=== PATIENT | male | born 1995 | race American Indian/Alaskan Native ===

== ENCOUNTER 2018-06-10 08:11 | Observation (INO) | payer SELFPAY ==
[2018-06-10 09:04] LABS: Basophils % (Auto) 0.3 % (0.0-1.8); Eosinophils # (Auto) 0.6 K/mm3 (0.0-0.4); Eosinophils % (Auto) 4.2 % (0.0-4.3); Hematocrit 28.9 % (35.5-45.6); Hemoglobin 9.7 gm/dl (11.8-15.2); Lymphocytes # (Auto) 1.4 K/mm3 (1.2-5.4); Lymphocytes % (Auto) 9.2 % (13.4-35.0); Mean Corpuscular HGB Conc 34 % (32-34); Mean Corpuscular Volume 91 fl (84-94); Monocytes # (Auto) 1.2 K/mm3 (0.0-0.8); Monocytes % (Auto) 8.2 % (0.0-7.3); Platelet Count 354 K/mm3 (140-440); Red Blood Count 3.16 M/mm3 (3.65-5.03); Red Cell Distribution Width 13.3 % (13.2-15.2)
--- NOTE | 2018-06-10 09:07 | Emergency Department Report ---
ED Abdominal Pain HPI - General Chief Complaint: Abdominal Pain Stated Complaint: ABD PAIN/BLOOD IN STOOL Time Seen by Provider: 06/10/18 09:01 Source: patient Mode of arrival: Ambulatory Limitations: No Limitations - History of Present Illness Initial Comments: Patient is a 22-year-old male that presents emergency with complaints of rectal bleeding and epigastric abdominal pain. Patient states the epigastric abdominal pain has resolved. Patient states that the rectal bleeding has been going on for 2 weeks. Patient states that the bleeding is worsening. Patient states when he first started was only a few drops of blood in the toilet. Patient states now it is multiple drops of blood in the toilet causing the water to turn red. Patient denies fever chills. Patient denies constipation. Patient denies lower abdominal pain. Patient denies nausea vomiting. Patient denies headache. Patient denies blurry vision. Patient denies passing out. MD Complaint: abdominal pain -: Sudden Location: epigastric Migration to: no migration Severity: mild Severity scale (0 -10): 2 Quality: aching Consistency: intermittent Improves With: eating Worsens With: nothing Associated Symptoms: hematochezia. denies: nausea, vomiting, diarrhea, fever, chills, constipation, dysuria, hematemesis, melena, hematuria, anorexia, syncope - Related Data Home Medications Medication Instructions Recorded Confirmed Last Taken Docusate Sodium [Doc-Q-Lace] 100 mg PO BID 06/10/18 06/10/18 Unknown OLANzapine [ZyPREXA] 10 mg PO DAILY 06/10/18 06/10/18 Unknown Psyllium Seed (with Sugar) 1 each PO PRN 06/10/18 06/10/18 Unknown [Metamucil] diphenhydrAMINE [Benadryl CAP] 50 mg PO QHS PRN 06/10/18 06/10/18 Unknown Allergies Allergy/AdvReac Type Severity Reaction Status Date / Time No Known Allergies Allergy Unverified 06/10/18 08:12 ED Review of Systems ROS: Stated complaint: ABD PAIN/BLOOD IN STOOL Other details as noted in HPI Constitutional: denies: chills, fever Eyes: denies: eye pain, eye discharge, vision change ENT: denies: ear pain, throat pain Respiratory: denies: cough, shortness of breath, wheezing Cardiovascular: denies: chest pain, palpitations Endocrine: no symptoms reported Gastrointestinal: abdominal pain, hematochezia. denies: nausea, diarrhea Genitourinary: denies: urgency, dysuria Musculoskeletal: denies: back pain, joint swelling, arthralgia Skin: denies: rash, lesions Neurological: denies: headache, weakness, paresthesias Psychiatric: denies: anxiety, depression Hematological/Lymphatic: denies: easy bleeding, easy bruising ED Past Medical Hx - Past Medical History Previous Medical History?: Yes Hx Psychiatric Treatment: Yes (BIPOLAR, SCHIZOPHRENIA) Additional medical history: HEMMORHOIDS - Surgical History Past Surgical History?: No - Family History Family history: no significant - Social History Smoking Status: Current Every Day Smoker Substance Use Type: None - Medications Home Medications: Home Medications Medication Instructions Recorded Confirmed Last Taken Type Docusate Sodium [Doc-Q-Lace] 100 mg PO BID 06/10/18 06/10/18 Unknown History OLANzapine [ZyPREXA] 10 mg PO DAILY 06/10/18 06/10/18 Unknown History Psyllium Seed (with Sugar) 1 each PO PRN 06/10/18 06/10/18 Unknown History [Metamucil] diphenhydrAMINE [Benadryl CAP] 50 mg PO QHS PRN 06/10/18 06/10/18 Unknown History ED Physical Exam - General Limitations: No Limitations General appearance: alert, in no apparent distress - Head Head exam: Present: atraumatic, normocephalic - Eye Eye exam: Present: normal appearance - ENT ENT exam: Present: mucous membranes moist - Neck Neck exam: Present: normal inspection - Respiratory Respiratory exam: Present: normal lung sounds bilaterally. Absent: respiratory distress - Cardiovascular Cardiovascular Exam: Present: regular rate, normal rhythm. Absent: systolic murmur, diastolic murmur, rubs, gallop - GI/Abdominal GI/Abdominal exam: Present: soft, normal bowel sounds. Absent: distended, tenderness, guarding, rebound, rigid - Rectal Rectal exam: Present: deferred - Extremities Exam Extremities exam: Present: normal inspection - Back Exam Back exam: Present: normal inspection - Neurological Exam Neurological exam: Present: alert, oriented X3 - Psychiatric Psychiatric exam: Present: normal affect, normal mood - Skin Skin exam: Present: warm, dry, intact, normal color. Absent: rash ED Course Vital Signs 06/10/18 06/10/18 08:18 09:14 Temperature 98.6 F Pulse Rate 112 H Respiratory 16 15 Rate Blood Pressure 130/63 O2 Sat by Pulse 99 Oximetry - Reevaluation(s) Reevaluation #1: discussed all results with mother and pt. 06/10/18 10:34 GI saw patient. discussed the plan of care with patient. GI to return to discuss plan of care with patient 06/10/18 11:30 Discussed plan of care and admission with patient and family. Both agree with plan of care and admission. Patient admitted to the hospitalist service. 06/10/18 12:17 - Consultations Consultation #1: GI consulted. Gi to see pt. 06/10/18 10:20 GI patient and an Kim will discuss case with attending for possible colonoscopy in the morning. 06/10/18 11:18 Consultation #2: Hospitalist to admit patient. Hospitalists to assume care of patient. Bridging orders placed 06/10/18 12:17 ED Medical Decision Making - Lab Data Result diagrams: 06/10/18 08:50 06/10/18 08:50 - Medical Decision Making Patient is a 22-year-old male that presents emergency room with complaints of GI bleed 2 weeks. Patient found to have anemia. GI consult and wants patient admitted for a morning colonoscopy. . Hospitalist consult for admission. Other labs unremarkable except for anemia - Differential Diagnosis GI bleed. Anemia. Critical Care Time: Yes Critical care attestation.: If time is entered above; I have spent that time in minutes in the direct care of this critically ill patient, excluding procedure time. Critical Care Time: 35 minutes ED Disposition Clinical Impression: Rectal bleed Abdominal pain Qualifiers: Abdominal location: epigastric Qualified Code(s): R10.13 - Epigastric pain Anemia Qualifiers: Anemia type: unspecified type Qualified Code(s): D64.9 - Anemia, unspecified GI bleed Qualifiers: GI bleed type/associated pathology: unspecified gastrointestinal hemorrhage type Qualified Code(s): K92.2 - Gastrointestinal hemorrhage, unspecified Disposition: 09 OP ADMIT IP TO THIS HOSP Is pt being admited?: Yes Does the pt Need Aspirin: No Condition: Critical Time of Disposition: 12:19
[2018-06-10 09:56] LABS: BUN/Creatinine Ratio 13; Blood Urea Nitrogen 8 mg/dL (9-20); Calcium 8.6 mg/dL (8.4-10.2); Hemolysis Index 17
[2018-06-10 10:49] LABS: Alanine Aminotransferase 8 units/L (7-56); Albumin 3.3 g/dL (3.9-5)
[2018-06-10 10:53] LABS: Bilirubin,Direct < 0.2 mg/dL (0-0.2)
--- NOTE | 2018-06-10 11:18 | Gastroenterology Consultation ---
<MALIK RODRIGUEZ - Last Filed: 06/10/18 12:43> History of Present Illness - Reason for Consult Consult date: 06/10/18 GI bleed/rectal bleeding Requesting physician: EDGARDO HAGER III - History of Present Illness Patient is a 22 y/o male with PMH of bipolar disorder, schizophrenia, and hemorrhoids who presented to ED with c/o rectal bleeding to which GI has been consulted. This morning patient was sitting up in bedside chair with family (mother) at bedside. He reports rectal bleeding with bright red blood after BMs for the past few months with bleeding increasing in amount x 3-4 days. Denies fever, wt loss, CP, SOB, abdominal pain, N/V, hematemesis, melena, or diarrhea. Admits to a hx of constipation but is now taking a daily stool softener with constipation resolved with having BMs x 2/day. Patient was recently incarcerated but denies any rectal trauma or rectal pain. States he was told during a prior hospital visit in [place] that he had blood in his stool but has never underwent a colonoscopy. No NSAIDs or blood thinning medications. No hx of Fhx of IBD or colon CA. Past History Past Medical History: other (as per HPI) Past Surgical History: No surgical history Social history: smoking Medications and Allergies Allergies Allergy/AdvReac Type Severity Reaction Status Date / Time No Known Allergies Allergy Unverified 06/10/18 08:12 Home Medications Medication Instructions Recorded Confirmed Last Taken Type Docusate Sodium [Doc-Q-Lace] 100 mg PO BID 06/10/18 06/10/18 Unknown History OLANzapine [ZyPREXA] 10 mg PO DAILY 06/10/18 06/10/18 Unknown History Psyllium Seed (with Sugar) 1 each PO PRN 06/10/18 06/10/18 Unknown History [Metamucil] diphenhydrAMINE [Benadryl CAP] 50 mg PO QHS PRN 06/10/18 06/10/18 Unknown History Active Meds: medications reviewed/updated as required Review of Systems - Review of Systems All systems: negative Gastrointestinal: hematochezia Exam - Constitutional Vital Signs: Temp Pulse Resp BP Pulse Ox 98.6 F 112 H 15 130/63 99 06/10/18 08:18 06/10/18 08:18 06/10/18 09:14 06/10/18 08:18 06/10/18 08:18 General appearance: no acute distress, other (thin appearing) - EENT Eyes: PERRL, EOM intact ENT: hearing intact - Respiratory Respiratory: bilateral: CTA - Cardiovascular Rhythm: other (tachycardia) - Gastrointestinal General gastrointestinal: Present: soft, non-tender, non-distended, normal bowel sounds - Neurologic Neurological: alert and oriented x3 - Labs CBC & Chem 7: 06/10/18 08:50 06/10/18 08:50 Lab Results: Laboratory Results - last 24 hr 06/10/18 06/10/18 06/10/18 08:50 08:50 08:50 WBC 15.1 H RBC 3.16 L Hgb 9.7 L Hct 28.9 L MCV 91 MCH 31 MCHC 34 RDW 13.3 Plt Count 354 Lymph % (Auto) 9.2 L Hill % (Auto) 8.2 H Eos % (Auto) 4.2 Baso % (Auto) 0.3 Lymph # 1.4 Hill # 1.2 H Eos # 0.6 H Baso # 0.0 Seg Neutrophils % 78.1 H Seg Neutrophils # 11.8 H Sodium 140 Potassium 3.8 Chloride 102.6 Carbon Dioxide 29 Anion Gap 12 BUN 8 L Creatinine 0.6 L Estimated GFR > 60 BUN/Creatinine Ratio 13 Glucose 89 Calcium 8.6 Total Bilirubin 0.20 Direct Bilirubin < 0.2 Indirect Bilirubin 0.0 AST 14 ALT 8 Alkaline Phosphatase 55 Total Protein 6.6 Albumin 3.3 L Albumin/Globulin Ratio 1.0 Lipase 141 H Assessment and Plan 1.GI bleed 2.hematochezia 3.H/o hemorrhoids 4.H/o constipation- now resolved with daily stool softener -BUN 9 -LFTs WNL -H/H 9.7/28.9 -continue to monitor H/H and transfuse as needed -hold blood thinning medications -patient reports rectal bleeding with bright red blood for the past few (3-6) months after BMs that has worsened x 3-4 days. No abd pain, hematemesis, or melena. -currently HD stable -etiology-possibly anorectal in origin vs other -will schedule for a colonoscopy tomorrow for further evaluation -okay for clears today then NPO after MN -continue supportive care -will follow <PALLAVI GUO - Last Filed: 06/10/18 20:30> Medications and Allergies Active Meds: Active Medications Polyethylene Glycol/Electrolytes (Golytely) 4,000 ml PO ONCE JUAN Stop: 06/11/18 00:00 Last Admin: 06/10/18 15:31 Dose: 4,000 ml Documented by: Exam - Constitutional Vital Signs: Temp Pulse Resp BP Pulse Ox 98.5 F 92 H 15 119/68 100 06/10/18 17:22 06/10/18 17:22 06/10/18 17:22 06/10/18 17:22 06/10/18 17:22 - Labs CBC & Chem 7: 06/10/18 08:50 06/10/18 08:50 Lab Results: Laboratory Results - last 24 hr 06/10/18 06/10/18 06/10/18 08:50 08:50 08:50 WBC 15.1 H RBC 3.16 L Hgb 9.7 L Hct 28.9 L MCV 91 MCH 31 MCHC 34 RDW 13.3 Plt Count 354 Lymph % (Auto) 9.2 L Hill % (Auto) 8.2 H Eos % (Auto) 4.2 Baso % (Auto) 0.3 Lymph # 1.4 Hill # 1.2 H Eos # 0.6 H Baso # 0.0 Seg Neutrophils % 78.1 H Seg Neutrophils # 11.8 H Sodium 140 Potassium 3.8 Chloride 102.6 Carbon Dioxide 29 Anion Gap 12 BUN 8 L Creatinine 0.6 L Estimated GFR > 60 BUN/Creatinine Ratio 13 Glucose 89 Calcium 8.6 Total Bilirubin 0.20 Direct Bilirubin < 0.2 Indirect Bilirubin 0.0 AST 14 ALT 8 Alkaline Phosphatase 55 Total Protein 6.6 Albumin 3.3 L Albumin/Globulin Ratio 1.0 Lipase 141 H Blood Type Antibody Screen 06/10/18 12:26 WBC RBC Hgb Hct MCV MCH MCHC RDW Plt Count Lymph % (Auto) Hill % (Auto) Eos % (Auto) Baso % (Auto) Lymph # Hill # Eos # Baso # Seg Neutrophils % Seg Neutrophils # Sodium Potassium Chloride Carbon Dioxide Anion Gap BUN Creatinine Estimated GFR BUN/Creatinine Ratio Glucose Calcium Total Bilirubin Direct Bilirubin Indirect Bilirubin AST ALT Alkaline Phosphatase Total Protein Albumin Albumin/Globulin Ratio Lipase Blood Type A POSITIVE Antibody Screen Negative Assessment and Plan Patient seen and examined. I have reviewed the advanced practitioner's evaluation, assessment, and plan, and agree with them. I note the following additions: Patient with benign exam (soft abd, +BS), but given significant anemia and continued rectal bleeding requires colonoscopy for further eval as simple hemorrhoids would be an unusual source for significant anemia. Will proceed with colonoscopy tomorrow
[2018-06-10] MEDS ORDERED: GOLYTELY PO SCH (13:00)
[2018-06-10] MEDS ORDERED: REGLAN IV PRN (21:47)
[2018-06-10] MEDS ORDERED: TYLENOL PO PRN (21:47)
[2018-06-10] MEDS ORDERED: ZOFRAN IV PRN (21:47)
[2018-06-10] MEDS ORDERED: MORPHINE IV PRN (21:47)
[2018-06-10] MEDS ORDERED: SODIUM CHLORIDE FLUSH SYRINGE 10 ML IV PRN (21:47)
[2018-06-10] MEDS ORDERED: DILAUDID IV PRN (21:47)
[2018-06-10] MEDS ORDERED: NACL 0.9% 1000 ML 1,000 ML IV SCH (22:00)
[2018-06-10 22:08] LABS: Hematocrit 26.3 % (35.5-45.6); Hemoglobin 9.2 gm/dl (11.8-15.2)
[2018-06-10] MEDS: PEPCID IV SCH (22:38)
[2018-06-10] MEDS: SODIUM CHLORIDE FLUSH SYRINGE 10 ML IV SCH (22:38)
[2018-06-11 07:13] LABS: Basophils % (Auto) 0.2 % (0.0-1.8); Eosinophils # (Auto) 0.5 K/mm3 (0.0-0.4); Eosinophils % (Auto) 4.6 % (0.0-4.3); Hematocrit 27.9 % (35.5-45.6); Hemoglobin 9.4 gm/dl (11.8-15.2); Lymphocytes % (Auto) 9.3 % (13.4-35.0); Mean Corpuscular HGB Conc 34 % (32-34); Mean Corpuscular Volume 92 fl (84-94); Monocytes # (Auto) 0.9 K/mm3 (0.0-0.8); Monocytes % (Auto) 7.9 % (0.0-7.3); Platelet Count 357 K/mm3 (140-440); Red Blood Count 3.05 M/mm3 (3.65-5.03); Red Cell Distribution Width 13.4 % (13.2-15.2)
--- NOTE | 2018-06-11 07:23 | Event Note ---
Date: 06/10/18 See H/p in reports Lower GI Bleed possible Heemorrhoid bleeding
[2018-06-11 07:36] LABS: BUN/Creatinine Ratio 7; Blood Urea Nitrogen 4 mg/dL (9-20); Calcium 8.4 mg/dL (8.4-10.2); Hemolysis Index 4
--- NOTE | 2018-06-11 07:40 | History and Physical Report ---
CHIEF COMPLAINT: 1. Abdominal pain. 2. Blood in the stools for 2 weeks. HISTORY OF PRESENT ILLNESS: A 22-year-old -[place] male with no significant past medical history except for bipolar disorder and schizophrenia, comes in for lower rectal bleeding for 2 weeks off and on. Has been worsening and hence he came to the Emergency Room. The patient noticed a few drops of blood in the toilet. Of late, he has been having 5-10 mL of blood in the stools. The patient also has been having formed stools. Some rectal pain present. No history of homosexuality. PAST MEDICAL HISTORY: Significant for bipolar disorder with schizophrenia. PAST SURGICAL HISTORY: None. FAMILY HISTORY: No significant family history. SOCIAL HISTORY: Smokes over half a pack a day. No drugs. REVIEW OF SYSTEMS: Significant for blood in the stool and cramping abdominal pain. Otherwise, review of systems is negative. PHYSICAL EXAMINATION: GENERAL: Young male, cooperative during examination. VITAL SIGNS: Blood pressure is 124/83, temperature is 98.3, pulse is 95, respirations are 16. HEENT: Unremarkable. Pupils equal and reactive. NECK: Supple, no lymphadenopathy, no thyromegaly. LUNGS: Clear to auscultation and percussion. Good air entry. CARDIOVASCULAR: S1, S2 heard. No gallop, no murmur, no rub. Apical impulse in left fifth intercostal space and midclavicular line. ABDOMEN: Soft and benign. No hepatosplenomegaly. No guarding, no rigidity. Hernial orifices are normal. Occult blood is positive. CENTRAL NERVOUS SYSTEM: Alert and oriented x 4, nonfocal exam. SKIN: Normal. LABORATORY DATA: White count is 15,100, H is 9.7 and hematocrit is 28.9, platelet count is 354,000. Electrolytes are normal. Lipase is 141. Albumin is 3.3. CT abdomen not done. ASSESSMENT AND PLAN: 1. Lower gastrointestinal bleed, possible hemorrhoidal bleeding from the history. We will get gastrointestinal involved. May get a colonoscopy. IV Protonix initiated. 2. Bipolar disorder. The patient is on Zyprexa. We will hold for 1 day till the procedure is over. 3. Deep venous thrombosis prophylaxis, sequential compression devices only. JOB# [id number] VSM/NTS
[2018-06-11] MEDS: SODIUM CHLORIDE FLUSH SYRINGE 10 ML IV SCH (09:21)
[2018-06-11] MEDS: PEPCID IV SCH (09:21)
[2018-06-11 10:17] LABS: Hematocrit 28.6 % (35.5-45.6); Hemoglobin 9.5 gm/dl (11.8-15.2)
[2018-06-11] MEDS ORDERED: NACL 0.9% 1000 ML 1,000 ML IV SCH (11:00)
[2018-06-11] MEDS ORDERED: WATER FOR IRRIG STERILE IR ONE (11:34)
--- NOTE | 2018-06-11 11:36 | Anesthesia Day of Surgery ---
Anesthesia Day of Surgery - Day of Surgery Patient Examined: Yes Patient H&P Reviewed: Yes Patient is NPO: Yes Beta Blockers: No
--- NOTE | 2018-06-11 11:37 | Anesthesia Consultation ---
Anesthesia Consult and Med Hx - Airway Anesthetic Teeth Evaluation: Good ROM Head & Neck: Adequate Mental/Hyoid Distance: Adequate Mallampati Class: Class III Intubation Access Assessment: Good - Pulmonary Exam CTA: Yes - Cardiac Exam Cardiac Exam: No Murmur - Pre-Operative Health Status ASA Pre-Surgery Classification: ASA2 Proposed Anesthetic Plan: MAC - Pulmonary Hx Smoking: Yes Hx Asthma: No Hx Respiratory Symptoms: No SOB: No COPD: No Home Oxygen Therapy: No Hx Pneumonia: No Hx Sleep Apnea: No - Cardiovascular System Hx Hypertension: No Hx Coronary Artery Disease: No Hx Heart Attack/AMI: No Hx Angina: No Hx Percutaneous Transluminal Coronary Angioplasty (PTCA): No Hx Cardia Arrhythmia: No Hx Pacemaker: No Hx Internal Defibrillator: No Hx Valvular Heart Disease: No Hx Heart Murmur: No Hx Peripheral Vascular Disease: No - Central Nervous System Hx Neuromuscular Disorder: No Hx Seizures: No CVA: No Hx Back Pain: No Hx Psychiatric Problems: Yes - Gastrointestinal Hx Ulcer: No Hx Gastroesophageal Reflux Disease: No - Endocrine Hx Renal Disease: No Hx End Stage Renal Disease: No Hx Cirrhosis: No Hx Liver Disease: No Hx Insulin Dependent Diabetes: No Hx Non-Insulin Dependent Diabetes: No Hx Thyroid Disease: No Hx Hypothyroidism: No Hx Hyperthyroidism: No - Hematic Hx Anemia: No Hx Sickle Cell Disease: No - Other Systems Hx Alcohol Use: No Hx Substance Use: No Hx Cancer: No Hx Obesity: No
[2018-06-11] MEDS ORDERED: DIPRIVAN 10 MG/ML IV ONE (11:42)
[2018-06-11] MEDS ORDERED: VERSED ONE (11:42)
[2018-06-11] MEDS ORDERED: XYLOCAINE 2% INFILTRATI ONE (11:46)
--- NOTE | 2018-06-11 12:13 | Operative Report ---
Operative Report Operative Report: DATE OF SERVICE: 06/11/18 SURGEON: Ezio Helm MD COLONOSCOPY with biopsy REPORT PREOPERATIVE AND POSTOPERATIVE DIAGNOSIS: rectal bleeding, anemia DESCRIPTION OF PROCEDURE: The colonoscope was passed to the terminal ileum as identified by the ileal tissue. Scope was carefully withdrawn. Retroflexion was performed in the rectum. At the end of procedure, the scope was cleaned using normal technique. Vital signs monitored continuously throughout. SEDATION: Provided by [facility]est[facility]iology [facility]. Quality of the prep was limited to poor COMPLICATIONS: None. ESTIMATED BLOOD LOSS: minimal FINDINGS: * Normal rectal exam * Terminal ileum was normal * There was thick liquid stool throughout the entire colon, limiting views * There was moderate to severe colitis throughout the entire colon, worst in the rectal to transverse colon with moderate to severe erythema and edema and friability with spots of blood scattered throughout. The ascending and cecum were only mild colitis with mild erythema and no friability. Biopsies were taken from the right colon consisting of cecum and ascending colon and from the left colon consisting of distal transverse descending sigmoid and rectum. RECOMMENDATIONS: * Etiology of the colitis is not clear, is not classic appearing for inflammatory bowel disease differential diagnosis includes infectious etiologies, inflammatory bowel disease, unlikely to be ischemia given the distribution. Recommend follow-up pathology results * From GI perspective as long as patient will be able to come for close outpatient follow-up in 1 week he can be discharged given the very stable hemoglobin
[2018-06-11 13:27] VITALS: BP 122/77
--- NOTE | 2018-06-11 13:41 | Discharge Summary ---
Providers - Providers Date of Admission: 06/10/18 13:26 Date of discharge: 06/11/18 Attending physician: CHRIS SÁNCHEZ 06/10/18 21:47 Consult to Physician [CONS] Routine Comment: Consulting Provider: JEANNETTE MOORE Physician Instructions: Reason For Exam: GI Bleed [facility] Condition: Fair Hospital course: Patient is 22 yo with schizophrenia, bipolar disorder. He presented with abdominal pain and bloody stools. He was seen and evaluated in ED and admitted. GI Physician was consulted. ALEX Rosen did colonoscopy reveling extensive colitis. Biopsies were taken. Patient was then dscharged home to follow with GI as outpatient. Disposition: TO HOME OR SELFCARE - Discharge Diagnoses (1) Acute colitis Status: Acute (2) Abdominal pain Status: Acute Qualifiers: Abdominal location: epigastric Qualified Code(s): R10.13 - Epigastric pain (3) GI bleed Status: Acute Qualifiers: GI bleed type/associated pathology: unspecified gastrointestinal hemorrhage type Qualified Code(s): K92.2 - Gastrointestinal hemorrhage, unspecified (4) Rectal bleed Status: Acute (5) Bipolar disorder Status: Acute (6) Schizophrenia Status: Acute (7) Malnutrition Status: Acute Core Measure Documentation - Palliative Care Palliative Care/ Comfort Measures: Not Applicable - Core Measures Any of the following diagnoses?: none Exam - Constitutional Vitals: Temp Pulse Resp BP Pulse Ox 98.2 F 88 16 122/77 99 06/11/18 13:24 06/11/18 13:24 06/11/18 13:24 06/11/18 13:24 06/11/18 13:24 Plan Activity: advance as tolerated Diet: regular Additional Instructions: 1.Follow up with PCP or [facility] in 1 week. 2.Follow up with ALEX Rosen in 1 week Follow up with: PALLAVI GUO MD [Staff Physician] - 7 Days LOGSDEN FAZAL GORDON MD [Primary Care Provider] - 7 Days
== END 2018-06-11 15:30 | disposition home or self-care (01) ==
LOC: ED 08:11 → 3A 13:26
PROVIDERS: ADMIT Internal Medicine; ATTEND Internal Medicine
DX: K62.5 Hemorrhage of anus and rectum (principal); F20.9 Schizophrenia, unspecified; F31.9 Bipolar disorder, unspecified; F17.210 Nicotine dependence, cigarettes, uncomplicated
CPT/HCPCS: 36415; 45380; 80048; 80076; 83690; 85014; 85018; 85025; 86850; 86900; 86901; 88305; 96374; 96376; 99291; G0378; J2250; J2704; J7030

== ENCOUNTER 2018-07-27 09:33 | Inpatient (IN) | payer OTHER ==
--- NOTE | 2018-07-27 10:09 | Emergency Department Report ---
HPI - General Chief Complaint: GI Bleed Time Seen by Provider: 07/27/18 09:45 - HPI HPI: 22-year-old -Turk[place] male presents to the emergency department from home with a complaint of a 4 to five-day history of nausea and vomiting and bright red blood when he has bowel movements. He denies significant abdominal pain but does admit to some abdominal cramping and says that the vomiting is painful. He denies any past medical history but does say that he had one episode of a GI bleed in the past. He is an occasional tobacco smoker. He tried some Tylenol for his symptoms without any relief. No primary care physician. No recent travel or sick contacts at home. ED Past Medical Hx - Past Medical History Hx Hypertension: No Hx Heart Attack/AMI: No Hx Liver Disease: No Hx Renal Disease: No Hx Sickle Cell Disease: No Hx Seizures: No Hx Psychiatric Treatment: Yes (BIPOLAR, SCHIZOPHRENIA) Hx Asthma: No Hx COPD: No Additional medical history: HEMMORHOIDS - Surgical History Hx Pacemaker: No Hx Internal Defibrillator: No - Social History Smoking Status: Current Every Day Smoker Substance Use Type: None - Medications Home Medications: Home Medications Medication Instructions Recorded Confirmed Last Taken Type OLANzapine [Zyprexa] 10 mg PO DAILY 06/10/18 07/27/18 Unknown History diphenhydrAMINE [Benadryl CAP] 50 mg PO QHS PRN 06/10/18 07/27/18 Unknown History ED Review of Systems ROS: Stated complaint: VOMITING Other details as noted in HPI Constitutional: denies: chills, fever Eyes: denies: eye pain, vision change ENT: denies: ear pain, throat pain Respiratory: denies: cough, shortness of breath Cardiovascular: denies: chest pain, palpitations Gastrointestinal: abdominal pain, nausea, vomiting, other (BRBPR) Genitourinary: denies: dysuria, discharge Musculoskeletal: denies: back pain, arthralgia Skin: denies: rash, lesions Neurological: denies: headache, weakness Physical Exam - Physical Exam Vital Signs: Vital Signs 07/27/18 09:40 Temperature 98.1 F Pulse Rate 149 H Respiratory 20 Rate Blood Pressure 108/64 O2 Sat by Pulse 100 Oximetry Physical Exam: GENERAL: The patient is well-developed well-nourished. HENT: Normocephalic. Atraumatic. Patient has moist mucous membranes. EYES: Extraocular motions are intact. Pupils equal reactive to light bilaterally. NECK: Supple. Trachea is midline. CHEST/LUNGS: Clear to auscultation. There is no respiratory distress noted. HEART/CARDIOVASCULAR: Regular. There is moderate tachycardia. There is no murmur. ABDOMEN: Abdomen is soft, nontender. Patient has normal bowel sounds. There is no abdominal distention. SKIN: Skin is warm and dry. NEURO: The patient is awake, alert, and oriented. The patient is cooperative. The patient has no focal neurologic deficits. The patient has normal speech. MUSCULOSKELETAL: There is no tenderness or deformity. There is no limitation range of motion. There is no evidence of acute injury. RECTAL: There is no gross blood seen but the mild stool obtained is positive on guaiac testing. No hemorrhoids or visible lesions. ED Course Vital Signs 07/27/18 09:40 Temperature 98.1 F Pulse Rate 149 H Respiratory 20 Rate Blood Pressure 108/64 O2 Sat by Pulse 100 Oximetry - Consultations Consultation #1: 07/27/18 13:41 I spoke with the stem setter on-call, Dr. Puri, who will see the patient has a consult but does not require any imaging at this time. He agrees with plan for transfusions. ED Medical Decision Making - Lab Data Result diagrams: 07/27/18 10:00 07/27/18 Unknown - Medical Decision Making This patient presents to the emergency department with a complaint of a 4 to five-day history of nausea and vomiting as well as some bright red blood per rectum during bowel movements. He presents with tachycardia with a heart rate of about 153 triage. He was found to have a hemoglobin of 6.1 and 2 units of packed red blood cells were ordered for transfusion. He has some mild positive stool on guaiac testing on examination. Gastroenterology contacted and consulted. The patient will be admitted by the hospitalist service. - Differential Diagnosis hemorrhoids, malignancy, diverticulosis, ulcer Critical Care Time: Yes Critical care time in (mins) excluding proc time.: 35 Critical care attestation.: If time is entered above; I have spent that time in minutes in the direct care of this critically ill patient, excluding procedure time. Critical care time was spent on this patient and doing his initial evaluation, multiple re- evaluations, ordering and interpretation of the laboratory studies, discussion with the stem setter. Critical Care Time: 35 minutes ED Disposition Clinical Impression: Symptomatic anemia, Anemia requiring transfusions GI bleed Qualifiers: GI bleed type/associated pathology: unspecified gastrointestinal hemorrhage type Qualified Code(s): K92.2 - Gastrointestinal hemorrhage, unspecified Anemia Qualifiers: Anemia type: unspecified type Qualified Code(s): D64.9 - Anemia, unspecified Disposition: DC-09 OP ADMIT IP TO THIS HOSP Is pt being admited?: Yes Condition: Serious Time of Disposition: 13:44
[2018-07-27 10:15] LABS: Hemoglobin 6.1 gm/dl (11.8-15.2); Mean Corpuscular HGB Conc 31 % (32-34); Mean Corpuscular Volume 73 fl (84-94); Platelet Count 465 K/mm3 (140-440); Red Blood Count 2.72 M/mm3 (3.65-5.03); Red Cell Distribution Width 19.1 % (13.2-15.2)
[2018-07-27 10:17] LABS: Hematocrit 19.8 % (35.5-45.6)
[2018-07-27] MEDS ORDERED: NACL 0.9% 500 ML 500 ML IV ONE (10:18)
[2018-07-27 10:19] LABS: Eosinophils % (Auto) 0.1 % (0.0-4.3); Monocytes # (Auto) 1.3 K/mm3 (0.0-0.8); Monocytes % (Auto) 6.4 % (0.0-7.3)
[2018-07-27 10:24] LABS: INR 0.95 (0.87-1.13)
[2018-07-27 10:25] LABS: Partial Thromboplastin Time 21.8 Sec. (24.2-36.6)
[2018-07-27 10:28] LABS: BUN/Creatinine Ratio 15; Blood Urea Nitrogen 12 mg/dL (9-20); Calcium 9.5 mg/dL (8.4-10.2); Hemolysis Index 0
[2018-07-27 10:46] LABS: Alanine Aminotransferase 7 units/L (7-56)
[2018-07-27 10:47] LABS: Bilirubin,Direct < 0.2 mg/dL (0-0.2)
--- NOTE | 2018-07-27 11:33 | Gastroenterology Consultation ---
History of Present Illness - Reason for Consult Consult date: 07/27/18 gi bleed, abdominal pain Requesting physician: LAURA PENA - History of Present Illness 22 yo aam presents with hematochezia, abdominal pain and n/v for 4-6 days. Similar admission in May, colonscopy was done which showed diffuse atypical appearing colitis based on report, however path most consistent with UC; pt did not follow-up in GI clinic due to lack of insurance. he had recurrent symptoms starting 4-6 days ago. He has had multiple episodes of brbpr with abd discomfort and n/v which led to ED arrival. pt found to have worsening anemia compared to recent labs; tachycardic but stable BP. Past History Past Medical History: other (colitis) Past Surgical History: No surgical history Social history: no significant social history Family history: no significant family history Medications and Allergies Allergies Allergy/AdvReac Type Severity Reaction Status Date / Time No Known Allergies Allergy Verified 07/27/18 09:35 Home Medications Medication Instructions Recorded Confirmed Last Taken Type OLANzapine [Zyprexa] 10 mg PO DAILY 06/10/18 07/27/18 Unknown History diphenhydrAMINE [Benadryl CAP] 50 mg PO QHS PRN 06/10/18 07/27/18 Unknown History Active Meds: Reviewed/updated patient's home and current medications Review of Systems - Review of Systems All systems: negative (per HPI) Exam - Constitutional Vital Signs: Temp Pulse Resp BP Pulse Ox 98.1 F 149 H 20 108/64 100 07/27/18 09:40 07/27/18 09:40 07/27/18 09:40 07/27/18 09:40 07/27/18 09:40 General appearance: no acute distress, other (thin male) - EENT Eyes: PERRL, EOM intact ENT: poor dentition - Respiratory Respiratory effort: normal Respiratory: bilateral: CTA - Cardiovascular Rhythm: regular Heart Sounds: Present: S1 & S2 Extremities: No edema, Full ROM - Gastrointestinal General gastrointestinal: Present: soft, non-tender, non-distended - Integumentary Integumentary: Present: clear, warm - Neurologic Neurological: alert and oriented x3 - Psychiatric Psychiatric: appropriate mood/affect - Labs CBC & Chem 7: 07/27/18 10:00 07/27/18 Unknown Lab Results: Laboratory Results - last 24 hr 07/27/18 07/27/18 07/27/18 10:00 10:00 10:00 WBC 20.0 H RBC 2.72 L Hgb 6.1 L Hct 19.8 L* MCV 73 L MCH 22 L MCHC 31 L RDW 19.1 H Plt Count 465 H [place] % (Auto) 6.4 Eos % (Auto) 0.1 [place] # 1.3 H Eos # 0.0 Baso # 0.0 Seg Neutrophils # 18.0 H PT 13.2 INR 0.95 APTT 21.8 L Sodium Potassium Chloride Carbon Dioxide Anion Gap BUN Creatinine Estimated GFR BUN/Creatinine Ratio Glucose Calcium Total Bilirubin 0.30 Direct Bilirubin < 0.2 Indirect Bilirubin 0.1 AST 13 ALT 7 Alkaline Phosphatase 55 Total Protein 7.5 Albumin 4.0 Albumin/Globulin Ratio 1.1 Blood Type Antibody Screen MALIA Antibody Screen Crossmatch 07/27/18 07/27/18 Unknown Unknown WBC RBC Hgb Hct MCV MCH MCHC RDW Plt Count [place] % (Auto) Eos % (Auto) [place] # Eos # Baso # Seg Neutrophils # PT INR APTT Sodium 138 Potassium 3.9 Chloride 95.2 L Carbon Dioxide 26 Anion Gap 21 BUN 12 Creatinine 0.8 Estimated GFR > 60 BUN/Creatinine Ratio 15 Glucose 140 H Calcium 9.5 Total Bilirubin Direct Bilirubin Indirect Bilirubin AST ALT Alkaline Phosphatase Total Protein Albumin Albumin/Globulin Ratio Blood Type A POSITIVE Antibody Screen TNR MALIA Antibody Screen Negative Crossmatch See Detail Assessment and Plan 1. Hematochezia - suspect from known underlying colitis, consistent with IBD/likely UC on path. transfusions ordered. trend H/H and transfusions prn to keep hgb > 7 2. Acute on chronic anemia 3. Abdominal pain - will obtain ct scan to assess for interval changes besides from known colitis. 4. H/o colitis - suspect IBD/UC given prior colonoscopy path/findings and prese ntation. steroids initiated, empiric abx; will need maintenance therapy as outpatient if IBD confirmed no plans for colonoscopy at this time given recent procedure and findings of colitis which has been untreated as outpatient. will follow
[2018-07-27 11:36] LABS: Basophils % (Manual) 0 % (0.0-1.8); Eosinophils % (Manual) 0 % (0.0-4.3); Total Cells Counted 100
[2018-07-27 11:37] LABS: Anisocytosis 1+; Hypochromasia 1+; Ovalocytes Few; Platelet Estimate Consistent w Auto; Poikilocytosis 1+; Tear Drop Cells Rare; Toxic Granulation Few
--- NOTE | 2018-07-27 11:52 | History and Physical Report ---
History of Present Illness Chief complaint: Kori been bleeding History of present illness: 22 YO Male with Bipolar, Schizophrenia, Malnutrition, Nicotine Dependence, Hemorrhoids presents to ED for evaluation. Pt states that he has experienced 6 episodes of bright red blood per rectum, as well as nausea and multiple episodes of vomiting. Pt reports "blood leaking from his butt". Pt also reports abdominal cramping and 15lbs unintentional weight loss over the past 2 months, as well as subjective fever. Pt transported to [facility] via private vehicle. Pt seen and evaluated in ED and found to have GI Bleed complicated by blood loss anemia, SIRS, severe malnutrition, as well as symptoms consistent with IBD. Pt transfused with PRBC and admitted to IM and initiated on GI bleeding protocol. GI consulted in ED. Pt also treated with IVF resuscitation therapy, and empiric IV antibiotic therapy. Pt denies chills, CP, Palpitations, ingestion of food/water from new or different sources, recent foreign travel, known ill cont acts, skin rash, hemoptysis, GEIGER, or rectal trauma. Prior admission on 06/10/18 reviewed. All listed medication reconciled at time of admission. Pathology reviewed from prior admission and reveals evidence of IBD/Ulcerative Colitis. Past History Past Medical History: other (Bipolar, schizophrenia, malnutrition, ) Past Surgical History: Other (colonoscopy) Social history: single, lives with family, smoking Family history: no significant family history (reviewed) Medications and Allergies Allergies Allergy/AdvReac Type Severity Reaction Status Date / Time No Known Allergies Allergy Verified 07/27/18 09:35 Home Medications Medication Instructions Recorded Confirmed Last Taken Type OLANzapine [Zyprexa] 10 mg PO DAILY 06/10/18 07/27/18 Unknown History diphenhydrAMINE [Benadryl CAP] 50 mg PO QHS PRN 06/10/18 07/27/18 Unknown History Review of Systems Constitutional: weight loss, fever, no weight gain, no chills, no sweats, no night sweats Ears, nose, mouth and throat: no ear pain, no ear discharge, no tinnitis, no dec reased hearing, no nasal congestion Cardiovascular: no chest pain, no edema, no syncope Respiratory: no cough, no cough with sputum, no excessive sputum, no hemoptysis, no shortness of breath Gastrointestinal: nausea, vomiting, BRBPR, loss of appetite, no coffee ground emesis, no excessive gas Genitourinary Male: no dysuria, no hematuria, no flank pain, no discharge Rectal: bleeding, no pain, no incontinence Musculoskeletal: no neck stiffness, no neck pain, no shooting arm pain, no arm numbness/tingling, no low back pain, no shooting leg pain Integumentary: no rash, no pruritis, no redness, no sores, no wounds Neurological: no head injury, no transient paralysis, no paralysis, no weakness, no parathesias, no numbness Psychiatric: no anxiety, no memory loss, no change in sleep habits, no sleep disturbances, no insomnia, no hypersomnia Endocrine: no cold intolerance, no heat intolerance, no polyphagia, no polydipsia, no polyuria Hematologic/Lymphatic: no easy bruising, no easy bleeding, no lymphadenopathy Allergic/Immunologic: no urticaria, no allergic rhinitis, no wheezing, no persistent infections Exam - Constitutional Vitals: Temp Pulse Resp BP Pulse Ox 98.1 F 149 H 20 108/64 100 07/27/18 09:40 07/27/18 09:40 07/27/18 09:40 07/27/18 09:40 07/27/18 09:40 General appearance: Present: mild distress - EENT Eyes: Present: PERRL ENT: hearing intact, clear oral mucosa - Neck Neck: Present: supple, normal ROM - Respiratory Respiratory effort: normal Respiratory: bilateral: CTA - Cardiovascular Heart Sounds: Present: S1 & S2. Absent: rub, click - Extremities Extremities: pulses symmetrical, No edema Peripheral Pulses: within normal limits - Abdominal General gastrointestinal: Present: soft, non-tender, non-distended, normal bowel sounds Male genitourinary: Present: normal - Integumentary Integumentary: Present: clear, warm, dry - Musculoskeletal Musculoskeletal: gait normal, strength equal bilaterally - Psychiatric Psychiatric: appropriate mood/affect, intact judgment & insight - Neurologic Neurologic: CNII-XII intact, moves all extremities Results - Labs CBC & Chem 7: 07/27/18 10:00 07/27/18 Unknown Labs: Abnormal lab results 07/27/18 07/27/18 07/27/18 Range/Units 10:00 10:00 Unknown WBC 20.0 H (4.5-11.0) K/mm3 RBC 2.72 L (3.65-5.03) M/mm3 Hgb 6.1 L (11.8-15.2) gm/dl Hct 19.8 L* (35.5-45.6) % MCV 73 L (84-94) fl MCH 22 L (28-32) pg MCHC 31 L (32-34) % RDW 19.1 H (13.2-15.2) % Plt Count 465 H (140-440) K/mm3 [place] # 1.3 H (0.0-0.8) K/mm3 Seg Neuts % (Manual) 94.0 H (40.0-70.0) % Lymphocytes % (Manual) 4.0 L (13.4-35.0) % Seg Neutrophils # 18.0 H (1.8-7.7) K/mm3 Seg Neutrophils # Man 18.8 H (1.8-7.7) K/mm3 Lymphocytes # (Manual) 0.8 L (1.2-5.4) K/mm3 APTT 21.8 L (24.2-36.6) Sec. Chloride 95.2 L (98-107) mmol/L Glucose 140 H (75-100) mg/dL Crossmatch 07/27/18 Range/Units Unknown WBC (4.5-11.0) K/mm3 RBC (3.65-5.03) M/mm3 Hgb (11.8-15.2) gm/dl Hct (35.5-45.6) % MCV (84-94) fl MCH (28-32) pg MCHC (32-34) % RDW (13.2-15.2) % Plt Count (140-440) K/mm3 [place] # (0.0-0.8) K/mm3 Seg Neuts % (Manual) (40.0-70.0) % Lymphocytes % (Manual) (13.4-35.0) % Seg Neutrophils # (1.8-7.7) K/mm3 Seg Neutrophils # Man (1.8-7.7) K/mm3 Lymphocytes # (Manual) (1.2-5.4) K/mm3 APTT (24.2-36.6) Sec. Chloride (98-107) mmol/L Glucose (75-100) mg/dL Crossmatch See Detail Assessment and Plan - Patient Problems (1) IBD (inflammatory bowel disease) Current Visit: Yes Status: Acute Plan to address problem: IV antibiotic therapy, CBC, IV steroid therapy, GI consulted in ED (2) SIRS (systemic inflammatory response syndrome) Current Visit: Yes Status: Acute Plan to address problem: IV antibiotic therapy, CBC, CMP, blood cultures, serial lactic acid, urinalysis, (3) GI bleed Current Visit: Yes Status: Acute Qualifiers: GI bleed type/associated pathology: unspecified gastrointestinal hemorrhage type Qualified Code(s): K92.2 - Gastrointestinal hemorrhage, unspecified Plan to address problem: PPI therapy, GI team consulted in ED, serial cbc, (4) Symptomatic anemia Current Visit: Yes Status: Acute Plan to address problem: PRBC transfusion, repeat CBC in AM (5) Malnutrition Current Visit: No Status: Acute Qualifiers: Malnutrition type: protein-calorie malnutrition Plan to address problem: Encourage increased protein intake, dietary supplementation (6) Nicotine dependence unspecified, with withdrawal Current Visit: Yes Status: Acute Qualifiers: Nicotine product type: cigarettes Qualified Code(s): F17.213 - Nicotine dependence, cigarettes, with withdrawal Plan to address problem: smoking cessation counseling, supportive care. (7) DVT prophylaxis Current Visit: Yes Status: Acute Plan to address problem: SCD to BLE while in bed, hold anticoagulation due to GI bleeding
[2018-07-27] MEDS ORDERED: NACL 0.9% 1000 ML 1,000 ML IV SCH (12:00)
[2018-07-27] MEDS ORDERED: PROVENTIL IH PRN (12:10)
[2018-07-27] MEDS ORDERED: SODIUM CHLORIDE FLUSH SYRINGE 10 ML IV PRN (12:10)
[2018-07-27] MEDS ORDERED: DILAUDID IV PRN (12:13)
[2018-07-27] MEDS ORDERED: BENADRYL PO PRN (12:13)
[2018-07-27] MEDS ORDERED: SOLU-Medrol IV ONE (12:19)
[2018-07-27] MEDS ORDERED: SOLU-Medrol ONE (13:43)
[2018-07-27] MEDS: PROTONIX IV SCH (22:13)
[2018-07-27] MEDS: MAXIPIME/NS 2 GM/100 ML 2 GM/100 ML BAG IV SCH (22:13)
[2018-07-27] MEDS: SODIUM CHLORIDE FLUSH SYRINGE 10 ML IV SCH (22:14)
[2018-07-27] MEDS: SOLU-Medrol IV SCH (22:14)
[2018-07-27] MEDS: FLAGYL 500 MG/100 ML 500 MG/100 ML BAG IV SCH ×2 (22:15→23:15)
[2018-07-28 05:42] LABS: Hematocrit 26.2 % (35.5-45.6); Hemoglobin 8.6 gm/dl (11.8-15.2); Mean Corpuscular HGB Conc 33 % (32-34); Mean Corpuscular Volume 78 fl (84-94); Platelet Count 338 K/mm3 (140-440); Red Blood Count 3.35 M/mm3 (3.65-5.03)
[2018-07-28 05:44] LABS: Red Cell Distribution Width 20.4 % (13.2-15.2)
[2018-07-28] MEDS: NACL 0.9% 1000 ML 1,000 ML IV SCH ×2 (05:50→15:44)
[2018-07-28 06:07] LABS: Alanine Aminotransferase 5 units/L (7-56); Albumin 3.5 g/dL (3.9-5); BUN/Creatinine Ratio 22; Blood Urea Nitrogen 11 mg/dL (9-20); Calcium 9.1 mg/dL (8.4-10.2); Hemolysis Index 2
[2018-07-28 06:47] LABS: Band Neutrophils # (Manual) 0.2 K/mm3; Eosinophils % (Manual) 0 % (0.0-4.3); Monocytes % (Manual) 0 % (0.0-7.3); Total Cells Counted 100
[2018-07-28 06:48] LABS: Anisocytosis 1+; Hypochromasia 1+; Ovalocytes Few; Platelet Estimate Consistent w Auto; Poikilocytosis 1+
--- NOTE | 2018-07-28 10:04 | Cat Scan Report ---
CT ABDOMEN PELVIS WITH CONTRAST: HISTORY: Abdominal pain, GI bleed. COMPARISON: none. TECHNIQUE: Helical CT in 1.25mm intervals following IV contrast. Sagittal and coronal reconstructions. FINDINGS: Lung bases: Normal. Liver: Normal. Biliary system: Normal. Pancreas: Normal. Spleen: Normal. Kidneys/ureters/bladder: Normal. Adrenal glands: Normal. Aorta: Normal. Intestines: Mild circumferential thickening and fluid there is identified in the distal colon and rectum. There is no obvious mass destruction although no oral contrast was administered. No site of GI bleeding is identified on CT with contrast. Appendix: Normal. Pelvic viscera: Normal. Ascites: None. Adenopathy: None. Musculoskeletal: Normal. IMPRESSION: Mild circumferential thickening and fluid in the distal colon suggesting a nonspecific colitis.
[2018-07-28] MEDS: SOLU-Medrol IV SCH ×2 (10:47→22:13)
[2018-07-28] MEDS: PROTONIX IV SCH ×2 (10:47→22:12)
[2018-07-28] MEDS: SODIUM CHLORIDE FLUSH SYRINGE 10 ML IV SCH ×2 (10:47→22:13)
[2018-07-28] MEDS ORDERED: POTASSIUM CHLORIDE PO ONE (11:00)
--- NOTE | 2018-07-28 12:42 | Gastroenterology Progress Note ---
<MALIK RODRIGUEZ - Last Filed: 07/28/18 12:43> Assessment and Plan 1.Hematochezia 2.acute on chronic anemia 3.abdominal pain 4.H/o colitis -H/H 8.6/26.2-trended up s/p blood transfusion -continue to monitor H/H and transfuse as needed -etiology-prior colonoscopy and path findings c/w IBD/likely UC -clinically, patient is stable. Reports feeling better today with abd pain improving. No N/V or active signs of bleeding. -no plan for repeat scope at this time -abd CT pending for today to assess for intrval changes besides from known colitis -okay to start on full liquids -continue steroids and empiric antibiotics -continue supportive care -will follow Subjective Date of service: 07/28/18 Principal diagnosis: GI bleed Interval history: No acute distress. No active signs of bleeding overnight or this am. Abd pain improving. No N/V. Objective - Constitutional Vitals: Temp Pulse Resp BP Pulse Ox 98.8 F 97 H 16 123/77 100 07/28/18 07:00 07/28/18 10:00 07/28/18 09:00 07/27/18 15:30 07/28/18 08:56 General appearance: no acute distress, other (thin appearing) - Respiratory Respiratory: bilateral: CTA (anterior) - Cardiovascular Rhythm: regular - Gastrointestinal General gastrointestinal: Present: soft, tender (slight TTP), non-distended, normal bowel sounds - Neurologic Neurological: alert and oriented x3 - Labs CBC & Chem 7: 07/28/18 05:04 07/28/18 05:04 Labs: Laboratory Results - last 24 hr 07/27/18 07/27/18 07/27/18 14:45 22:50 Unknown WBC RBC Hgb Hct MCV MCH MCHC RDW Plt Count Add Manual Diff Total Counted Seg Neuts % (Manual) Band Neutrophils % Lymphocytes % (Manual) Reactive Lymphs % (Man) Monocytes % (Manual) Eosinophils % (Manual) Basophils % (Manual) Metamyelocytes % Myelocytes % Promyelocytes % Blast Cells % Nucleated RBC % Seg Neutrophils # Man Band Neutrophils # Lymphocytes # (Manual) Abs React Lymphs (Man) Monocytes # (Manual) Eosinophils # (Manual) Basophils # (Manual) Metamyelocytes # Myelocytes # Promyelocytes # Blast Cells # WBC Morphology Hypersegmented Neuts Hyposegmented Neuts Hypogranular Neuts Smudge Cells Toxic Granulation Toxic Vacuolation Dohle Bodies Pelger-Huet Anomaly Lj Rods Platelet Estimate Clumped Platelets Plt Clumps, EDTA Large Platelets Giant Platelets Platelet Satelliting Plt Morphology Comment RBC Morphology Dimorphic RBCs Polychromasia Hypochromasia Poikilocytosis Anisocytosis Microcytosis Macrocytosis Spherocytes Pappenheimer Bodies Sickle Cells Target Cells Tear Drop Cells Ovalocytes Helmet Cells [place] Bodies [place] Rings [place] Cells Bite Cells Crenated Cell Elliptocytes Acanthocytes (Spur) Rouleaux Hemoglobin C Crystals Schistocytes Malaria parasites [place] Bodies Hem Pathologist Commnt Sodium Potassium Chloride Carbon Dioxide Anion Gap BUN Creatinine Estimated GFR BUN/Creatinine Ratio Glucose Lactic Acid 0.90 Calcium Total Bilirubin AST ALT Alkaline Phosphatase Total Protein Albumin Albumin/Globulin Ratio HIV 1&2 Antibody Rapid Non react HIV P24 Antigen Non react Blood Type A POSITIVE Antibody Screen TNR MALIA Antibody Screen Negative Crossmatch See Detail 07/28/18 07/28/18 05:04 05:04 WBC 15.3 H RBC 3.35 L Hgb 8.6 L Hct 26.2 L D MCV 78 L MCH 26 L MCHC 33 RDW 20.4 H Plt Count 338 Add Manual Diff Complete Total Counted 100 Seg Neuts % (Manual) 94.0 H Band Neutrophils % 1.0 Lymphocytes % (Manual) 2.0 L Reactive Lymphs % (Man) 1.0 Monocytes % (Manual) 0 Eosinophils % (Manual) 0 Basophils % (Manual) 1.0 Metamyelocytes % 1.0 Myelocytes % 0 Promyelocytes % 0 Blast Cells % 0 Nucleated RBC % Not Reportable Seg Neutrophils # Man 14.4 H Band Neutrophils # 0.2 Lymphocytes # (Manual) 0.3 L Abs React Lymphs (Man) 0.2 Monocytes # (Manual) 0.0 Eosinophils # (Manual) 0.0 Basophils # (Manual) 0.2 H Metamyelocytes # 0.2 Myelocytes # 0.0 Promyelocytes # 0.0 Blast Cells # 0.0 WBC Morphology Not Reportable Hypersegmented Neuts Not Reportable Hyposegmented Neuts Not Reportable Hypogranular Neuts Not Reportable Smudge Cells Not Reportable Toxic Granulation Not Reportable Toxic Vacuolation Not Reportable Dohle Bodies Not Reportable Pelger-Huet Anomaly Not Reportable Lj Rods Not Reportable Platelet Estimate Consistent w auto Clumped Platelets Not Reportable Plt Clumps, EDTA Not Reportable Large Platelets Not Reportable Giant Platelets Not Reportable Platelet Satelliting Not Reportable Plt Morphology Comment Not Reportable RBC Morphology Not Reportable Dimorphic RBCs Not Reportable Polychromasia Not Reportable Hypochromasia 1+ Poikilocytosis 1+ Anisocytosis 1+ Microcytosis Not Reportable Macrocytosis Not Reportable Spherocytes Not Reportable Pappenheimer Bodies Not Reportable Sickle Cells Not Reportable Target Cells Not Reportable Tear Drop Cells Not Reportable Ovalocytes Few Helmet Cells Not Reportable [place] Bodies Not Reportable [place] Rings Not Reportable [place] Cells Not Reportable Bite Cells Not Reportable Crenated Cell Not Reportable Elliptocytes Few Acanthocytes (Spur) Not Reportable Rouleaux Not Reportable Hemoglobin C Crystals Not Reportable Schistocytes Not Reportable Malaria parasites Not Reportable [place] Bodies Not Reportable Hem Pathologist Commnt No Sodium 138 Potassium 3.3 L Chloride 100.2 Carbon Dioxide 26 Anion Gap 15 BUN 11 Creatinine 0.5 L Estimated GFR > 60 BUN/Creatinine Ratio 22 Glucose 118 H Lactic Acid Calcium 9.1 Total Bilirubin 0.50 AST 10 ALT 5 L Alkaline Phosphatase 48 Total Protein 6.3 Albumin 3.5 L Albumin/Globulin Ratio 1.3 HIV 1&2 Antibody Rapid HIV P24 Antigen Blood Type Antibody Screen MALIA Antibody Screen Crossmatch <SHERI MURO - Last Filed: 07/28/18 13:17> Assessment and Plan Pt seen and examined. Agree with note above; clinically doing better. still with hematochezia but improved. cont management as above and advance diet as tolerated. suspected IBD/UC. Objective - Constitutional Vitals: Temp Pulse Resp BP Pulse Ox 98.8 F 97 H 16 123/77 100 07/28/18 07:00 07/28/18 10:00 07/28/18 09:00 07/27/18 15:30 07/28/18 08:56 - Labs CBC & Chem 7: 07/28/18 05:04 07/28/18 05:04 Labs: Laboratory Results - last 24 hr 07/27/18 07/27/18 07/27/18 14:45 22:50 Unknown WBC RBC Hgb Hct MCV MCH MCHC RDW Plt Count Add Manual Diff Total Counted Seg Neuts % (Manual) Band Neutrophils % Lymphocytes % (Manual) Reactive Lymphs % (Man) Monocytes % (Manual) Eosinophils % (Manual) Basophils % (Manual) Metamyelocytes % Myelocytes % Promyelocytes % Blast Cells % Nucleated RBC % Seg Neutrophils # Man Band Neutrophils # Lymphocytes # (Manual) Abs React Lymphs (Man) Monocytes # (Manual) Eosinophils # (Manual) Basophils # (Manual) Metamyelocytes # Myelocytes # Promyelocytes # Blast Cells # WBC Morphology Hypersegmented Neuts Hyposegmented Neuts Hypogranular Neuts Smudge Cells Toxic Granulation Toxic Vacuolation Dohle Bodies Pelger-Huet Anomaly Lj Rods Platelet Estimate Clumped Platelets Plt Clumps, EDTA Large Platelets Giant Platelets Platelet Satelliting Plt Morphology Comment RBC Morphology Dimorphic RBCs Polychromasia Hypochromasia Poikilocytosis Anisocytosis Microcytosis Macrocytosis Spherocytes Pappenheimer Bodies Sickle Cells Target Cells Tear Drop Cells Ovalocytes Helmet Cells [place] Bodies [place] Rings [place] Cells Bite Cells Crenated Cell Elliptocytes Acanthocytes (Spur) Rouleaux Hemoglobin C Crystals Schistocytes Malaria parasites [place] Bodies Hem Pathologist Commnt Sodium Potassium Chloride Carbon Dioxide Anion Gap BUN Creatinine Estimated GFR BUN/Creatinine Ratio Glucose Lactic Acid 0.90 Calcium Total Bilirubin AST ALT Alkaline Phosphatase Total Protein Albumin Albumin/Globulin Ratio HIV 1&2 Antibody Rapid Non react HIV P24 Antigen Non react Blood Type A POSITIVE Antibody Screen TNR MALIA Antibody Screen Negative Crossmatch See Detail 07/28/18 07/28/18 05:04 05:04 WBC 15.3 H RBC 3.35 L Hgb 8.6 L Hct 26.2 L D MCV 78 L MCH 26 L MCHC 33 RDW 20.4 H Plt Count 338 Add Manual Diff Complete Total Counted 100 Seg Neuts % (Manual) 94.0 H Band Neutrophils % 1.0 Lymphocytes % (Manual) 2.0 L Reactive Lymphs % (Man) 1.0 Monocytes % (Manual) 0 Eosinophils % (Manual) 0 Basophils % (Manual) 1.0 Metamyelocytes % 1.0 Myelocytes % 0 Promyelocytes % 0 Blast Cells % 0 Nucleated RBC % Not Reportable Seg Neutrophils # Man 14.4 H Band Neutrophils # 0.2 Lymphocytes # (Manual) 0.3 L Abs React Lymphs (Man) 0.2 Monocytes # (Manual) 0.0 Eosinophils # (Manual) 0.0 Basophils # (Manual) 0.2 H Metamyelocytes # 0.2 Myelocytes # 0.0 Promyelocytes # 0.0 Blast Cells # 0.0 WBC Morphology Not Reportable Hypersegmented Neuts Not Reportable Hyposegmented Neuts Not Reportable Hypogranular Neuts Not Reportable Smudge Cells Not Reportable Toxic Granulation Not Reportable Toxic Vacuolation Not Reportable Dohle Bodies Not Reportable Pelger-Huet Anomaly Not Reportable Lj Rods Not Reportable Platelet Estimate Consistent w auto Clumped Platelets Not Reportable Plt Clumps, EDTA Not Reportable Large Platelets Not Reportable Giant Platelets Not Reportable Platelet Satelliting Not Reportable Plt Morphology Comment Not Reportable RBC Morphology Not Reportable Dimorphic RBCs Not Reportable Polychromasia Not Reportable Hypochromasia 1+ Poikilocytosis 1+ Anisocytosis 1+ Microcytosis Not Reportable Macrocytosis Not Reportable Spherocytes Not Reportable Pappenheimer Bodies Not Reportable Sickle Cells Not Reportable Target Cells Not Reportable Tear Drop Cells Not Reportable Ovalocytes Few Helmet Cells Not Reportable [place] Bodies Not Reportable [place] Rings Not Reportable Zari Cells Not Reportable Bite Cells Not Reportable Crenated Cell Not Reportable Elliptocytes Few Acanthocytes (Spur) Not Reportable Rouleaux Not Reportable Hemoglobin C Crystals Not Reportable Schistocytes Not Reportable Malaria parasites Not Reportable [place] Bodies Not Reportable Hem Pathologist Commnt No Sodium 138 Potassium 3.3 L Chloride 100.2 Carbon Dioxide 26 Anion Gap 15 BUN 11 Creatinine 0.5 L Estimated GFR > 60 BUN/Creatinine Ratio 22 Glucose 118 H Lactic Acid Calcium 9.1 Total Bilirubin 0.50 AST 10 ALT 5 L Alkaline Phosphatase 48 Total Protein 6.3 Albumin 3.5 L Albumin/Globulin Ratio 1.3 HIV 1&2 Antibody Rapid HIV P24 Antigen Blood Type Antibody Screen MALIA Antibody Screen Crossmatch
[2018-07-28] MEDS: MAXIPIME/NS 2 GM/100 ML 2 GM/100 ML BAG IV SCH ×4 (13:48→23:57)
[2018-07-28] MEDS: FLAGYL 500 MG/100 ML 500 MG/100 ML BAG IV SCH ×3 (13:50→22:13)
--- NOTE | 2018-07-28 13:54 | Progress Note ---
Assessment and Plan Assessment and plan: 22 YO Male with Bipolar, Schizophrenia, Malnutrition, Nicotine Dependence, Hemorrhoids presents to ED for evaluation. Pt states that he has experienced 6 episodes of bright red blood per rectum, as well as nausea and multiple episodes of vomiting. Pt reports "blood leaking from his butt". Pt also reports abdominal cramping and 15lbs unintentional weight loss over the past 2 months, as well as subjective fever. Pt transported to [facility] via private vehicle. Pt seen and evaluated in ED and found to have GI Bleed complicated by blood loss anemia, SIRS, severe malnutrition, as well as symptoms consistent with IBD. Pt transfused with PRBC and admitted to IM and initiated on GI bleeding protocol. GI consulted in ED. Pt also treated with IVF resuscitation therapy, and empiric IV antibiotic therapy. Pt denies chills, CP, Palpitations, ingestion of food/water from new or different sources, recent foreign travel, known ill contacts, skin rash, hemoptysis, GEIGER, or rectal trauma. Prior admission on 06/10 reviewed. All listed medication reconciled at time of admission. Pathology reviewed from prior admission and reveals evidence of IBD/Ulcerative Colitis. - Patient Problems (1) IBD (inflammatory bowel disease)/colitis Current Visit: Yes Status: Acute Plan to address problem: IV antibiotic therapy, CBC, IV steroid therapy, GI consulted in ED Path consistent with UC Started on steroids (2) SIRS (systemic inflammatory response syndrome) Current Visit: Yes Status: Acute Plan to address problem: IV antibiotic therapy, CBC, CMP, blood cultures, serial lactic acid, urinalysis, (3) GI bleed/Hematochezia Current Visit: Yes Status: Acute Qualifiers: GI bleed type/associated pathology: unspecified gastrointestinal hemorrhage type Qualified Code(s): K92.2 - Gastrointestinal hemorrhage, unspecified Plan to address problem: PPI therapy, GI team consulted in ED, serial cbc, Transfused 2 units prbc (4) Symptomatic anemia Current Visit: Yes Status: Acute Plan to address problem: PRBC transfusion, repeat CBC in AM (5) Malnutrition Current Visit: No Status: Acute Qualifiers: Malnutrition type: protein-calorie malnutrition Plan to address problem: Encourage increased protein intake, dietary supplementation (6) Nicotine dependence unspecified, with withdrawal Current Visit: Yes Status: Acute Qualifiers: Nicotine product type: cigarettes Qualified Code(s): F17.213 - Nicotine dependence, cigarettes, with withdrawal Plan to address problem: smoking cessation counseling, supportive care. (7) DVT prophylaxis Current Visit: Yes Status: Acute Plan to address problem: SCD to BLE while in bed, hold anticoagulation due to GI bleeding Anticipate discharge in am if clinically stable Needs some financial assistance to follow with GI outpatient. Case management consulted. History Interval history: Patient seen and examined, tolerating some full liquid at this time. Hospitalist Physical - Physical exam Narrative exam: General appearance: Present: resting comfortable - EENT Eyes: Present: PERRL ENT: hearing intact, clear oral mucosa - Neck Neck: Present: supple, normal ROM - Respiratory Respiratory effort: normal Respiratory: bilateral: CTA - Cardiovascular Heart Sounds: Present: S1 & S2. Absent: rub, click - Extremities Extremities: pulses symmetrical, No edema Peripheral Pulses: within normal limits - Abdominal General gastrointestinal: Present: soft, non-tender, non-distended, normal bowel sounds Male genitourinary: Present: normal - Integumentary Integumentary: Present: clear, warm, dry - Musculoskeletal Musculoskeletal: gait normal, strength equal bilaterally - Psychiatric Psychiatric: appropriate mood/affect, intact judgment & insight - Neurologic Neurologic: CNII-XII intact, moves all extremities - Constitutional Vitals: Temp Pulse Resp BP Pulse Ox 98.8 F 97 H 16 123/77 100 07/28/18 07:00 07/28/18 10:00 07/28/18 13:00 07/27/18 15:30 07/28/18 08:56 General appearance: Present: mild distress Results - Labs CBC & Chem 7: 07/28/18 05:04 07/28/18 05:04 Labs: Laboratory Last Values WBC 15.3 K/mm3 (4.5-11.0) H 07/28/18 05:04 RBC 3.35 M/mm3 (3.65-5.03) L 07/28/18 05:04 Hgb 8.6 gm/dl (11.8-15.2) L 07/28/18 05:04 Hct 26.2 % (35.5-45.6) L D 07/28/18 05:04 MCV 78 fl (84-94) L 07/28/18 05:04 MCH 26 pg (28-32) L 07/28/18 05:04 MCHC 33 % (32-34) 07/28/18 05:04 RDW 20.4 % (13.2-15.2) H 07/28/18 05:04 Plt Count 338 K/mm3 (140-440) 07/28/18 05:04 [place] % (Auto) 6.4 % (0.0-7.3) 07/27/18 10:00 Eos % (Auto) 0.1 % (0.0-4.3) 07/27/18 10:00 [place] # 1.3 K/mm3 (0.0-0.8) H 07/27/18 10:00 Eos # 0.0 K/mm3 (0.0-0.4) 07/27/18 10:00 Baso # 0.0 K/mm3 (0.0-0.1) 07/27/18 10:00 Add Manual Diff Complete 07/28/18 05:04 Total Counted 100 07/28/18 05:04 Seg Neuts % (Manual) 94.0 % (40.0-70.0) H 07/28/18 05:04 1.0 % 07/28/18 05:04 2.0 % (13.4-35.0) L 07/28/18 05:04 Reactive Lymphs % (Man) 1.0 % 07/28/18 05:04 0 % (0.0-7.3) 07/28/18 05:04 0 % (0.0-4.3) 07/28/18 05:04 1.0 % (0.0-1.8) 07/28/18 05:04 1.0 % 07/28/18 05:04 0 % 07/28/18 05:04 0 % 07/28/18 05:04 0 % 07/28/18 05:04 Nucleated RBC % Not Reportable 07/28/18 05:04 Seg Neutrophils # 18.0 K/mm3 (1.8-7.7) H 07/27/18 10:00 Seg Neutrophils # Man 14.4 K/mm3 (1.8-7.7) H 07/28/18 05:04 Band Neutrophils # 0.2 K/mm3 07/28/18 05:04 0.3 K/mm3 (1.2-5.4) L 07/28/18 05:04 Abs React Lymphs (Man) 0.2 K/mm3 07/28/18 05:04 0.0 K/mm3 (0.0-0.8) 07/28/18 05:04 0.0 K/mm3 (0.0-0.4) 07/28/18 05:04 0.2 K/mm3 (0.0-0.1) H 07/28/18 05:04 0.2 K/mm3 07/28/18 05:04 0.0 K/mm3 07/28/18 05:04 0.0 K/mm3 07/28/18 05:04 Blast Cells # 0.0 K/mm3 07/28/18 05:04 WBC Morphology Not Reportable 07/28/18 05:04 Hypersegmented Neuts Not Reportable 07/28/18 05:04 Hyposegmented Neuts Not Reportable 07/28/18 05:04 Hypogranular Neuts Not Reportable 07/28/18 05:04 Not Reportable 07/28/18 05:04 Not Reportable 07/28/18 05:04 Not Reportable 07/28/18 05:04 Not Reportable 07/28/18 05:04 Not Reportable 07/28/18 05:04 Not Reportable 07/28/18 05:04 Consistent w auto 07/28/18 05:04 Not Reportable 07/28/18 05:04 Plt Clumps, EDTA Not Reportable 07/28/18 05:04 Not Reportable 07/28/18 05:04 Not Reportable 07/28/18 05:04 Not Reportable 07/28/18 05:04 Plt Morphology Comment Not Reportable 07/28/18 05:04 RBC Morphology Not Reportable 07/28/18 05:04 Dimorphic RBCs Not Reportable 07/28/18 05:04 Not Reportable 07/28/18 05:04 1+ 07/28/18 05:04 1+ 07/28/18 05:04 1+ 07/28/18 05:04 Not Reportable 07/28/18 05:04 Not Reportable 07/28/18 05:04 Not Reportable 07/28/18 05:04 Not Reportable 07/28/18 05:04 Not Reportable 07/28/18 05:04 Not Reportable 07/28/18 05:04 Not Reportable 07/28/18 05:04 Few 07/28/18 05:04 Not Reportable 07/28/18 05:04 Not Reportable 07/28/18 05:04 Not Reportable 07/28/18 05:04 Not Reportable 07/28/18 05:04 Not Reportable 07/28/18 05:04 Not Reportable 07/28/18 05:04 Few 07/28/18 05:04 Acanthocytes (Spur) Not Reportable 07/28/18 05:04 Rouleaux Not Reportable 07/28/18 05:04 Not Reportable 07/28/18 05:04 Not Reportable 07/28/18 05:04 Not Reportable 07/28/18 05:04 Not Reportable 07/28/18 05:04 Hem Pathologist Commnt No 07/28/18 05:04 PT 13.2 Sec. (12.2-14.9) 07/27/18 10:00 INR 0.95 (0.87-1.13) 07/27/18 10:00 APTT 21.8 Sec. (24.2-36.6) L 07/27/18 10:00 Sodium 138 mmol/L (137-145) 07/28/18 05:04 Potassium 3.3 mmol/L (3.6-5.0) L 07/28/18 05:04 Chloride 100.2 mmol/L (98-107) 07/28/18 05:04 Carbon Dioxide 26 mmol/L (22-30) 07/28/18 05:04 15 mmol/L 07/28/18 05:04 BUN 11 mg/dL (9-20) 07/28/18 05:04 0.5 mg/dL (0.8-1.5) L 07/28/18 05:04 Estimated GFR > 60 ml/min 07/28/18 05:04 22 % 07/28/18 05:04 Glucose 118 mg/dL (75-100) H 07/28/18 05:04 Lactic Acid 0.90 mmol/L (0.7-2.0) 07/27/18 22:50 Calcium 9.1 mg/dL (8.4-10.2) 07/28/18 05:04 0.50 mg/dL (0.1-1.2) 07/28/18 05:04 < 0.2 mg/dL (0-0.2) 07/27/18 10:00 0.1 mg/dL 07/27/18 10:00 AST 10 units/L (5-40) 07/28/18 05:04 ALT 5 units/L (7-56) L 07/28/18 05:04 48 units/L (35-129) 07/28/18 05:04 6.3 g/dL (6.3-8.2) 07/28/18 05:04 3.5 g/dL (3.9-5) L 07/28/18 05:04 1.3 % 07/28/18 05:04 HIV 1&2 Antibody Rapid Non react (Non React) 07/27/18 14:45 Non react (Non React) 07/27/18 14:45 Blood Type A POSITIVE 07/27/18 Unknown Antibody Screen TNR 07/27/18 Unknown MALIA Antibody Screen Negative 07/27/18 Unknown Crossmatch See Detail 07/27/18 Unknown Active Medications - Current Medications Current Medications: Generic Name Dose Route Start Last Admin Trade Name Freq PRN Reason Stop Dose Admin Albuterol 2.5 mg 07/27/18 12:10 Proventil IH Q3HRT PRN Shortness Of Breath Diphenhydramine HCl 50 mg 07/27/18 12:13 Benadryl PO QHS PRN Sleep Hydromorphone HCl 0.5 mg 07/27/18 12:13 Dilaudid IV Q4H PRN Pain , Severe (7-10) Sodium Chloride 1,000 mls @ 125 mls/hr 07/27/18 12:00 07/28/18 05:50 Nacl 0.9% 1000 Ml IV 125 mls/hr DIRECT JUAN Administration Cefepime HCl 2 gm in 100 mls @ 200 mls/hr 07/27/18 14:00 07/27/18 22:13 Maxipime/Ns 2 Gm/100 Ml IV 200 mls/hr Q8HR JUAN Administration Protocol Metronidazole 500 mg in 100 mls @ 100 mls/hr 07/27/18 14:00 07/27/18 23:15 Flagyl 500 Mg/100 Ml IV 100 mls/hr Q8HR JUAN Administration Protocol Methylprednisolone Sodium Succinate 40 mg 07/27/18 22:00 07/28/18 10:47 Solu-Medrol IV 40 mg Q12HR JUAN Administration Olanzapine 10 mg 07/28/18 10:00 07/28/18 11:07 Zyprexa PO 10 mg DAILY JUAN Administration Pantoprazole Sodium 40 mg 07/27/18 22:00 07/28/18 10:47 Protonix IV 40 mg BID JUAN Administration Sodium Chloride 10 ml 07/27/18 22:00 07/28/18 10:47 Sodium Chloride Flush Syringe 10 Ml IV 10 ml BID JUAN Administration Sodium Chloride 10 ml 07/27/18 12:10 Sodium Chloride Flush Syringe 10 Ml IV PRN PRN LINE FLUSH
[2018-07-29] MEDS: NACL 0.9% 1000 ML 1,000 ML IV SCH ×2 (03:41→13:11)
[2018-07-29 04:58] LABS: Hematocrit 23.6 % (35.5-45.6); Hemoglobin 7.6 gm/dl (11.8-15.2); Mean Corpuscular HGB Conc 32 % (32-34); Mean Corpuscular Volume 79 fl (84-94); Platelet Count 299 K/mm3 (140-440)
[2018-07-29 05:06] LABS: Red Cell Distribution Width 20.4 % (13.2-15.2)
[2018-07-29 05:23] LABS: BUN/Creatinine Ratio 18; Blood Urea Nitrogen 9 mg/dL (9-20); Calcium 8.4 mg/dL (8.4-10.2); Hemolysis Index 2
[2018-07-29] MEDS: MAXIPIME/NS 2 GM/100 ML 2 GM/100 ML BAG IV SCH (05:38)
[2018-07-29] MEDS: FLAGYL 500 MG/100 ML 500 MG/100 ML BAG IV SCH ×2 (06:16→13:11)
[2018-07-29 06:42] VITALS: BP 107/51
[2018-07-29] MEDS: SOLU-Medrol IV SCH (09:19)
[2018-07-29] MEDS: PROTONIX IV SCH (09:19)
[2018-07-29] MEDS: SODIUM CHLORIDE FLUSH SYRINGE 10 ML IV SCH (09:24)
--- NOTE | 2018-07-29 10:33 | Gastroenterology Progress Note ---
<MALIK RODRIGUEZ - Last Filed: 07/29/18 10:29> Assessment and Plan 1.Hematochezia 2.acute on chronic anemia 3.abdominal pain 4.H/o colitis -H/H 7.6/23.6 -continue to monitor H/H and transfuse as needed -abd CT showed mild circumferential thickenign and fluid in the distal colon -etiology-prior colonoscopy and path findings c/w IBD/likely UC -clinically, patient is stable with symptoms improved. Denies abd pain or N/V. Tolerating clears. -no plan for repeat scope at this time -advance diet to GI soft -continue steroids and empiric antibiotics -continue supportive care -once tolerating PO, patient is okay per GI standpoint to be discharged on steroid taper with f/u in clinic (~2-3 weeks) for further management -Will sign off, please call if needed Subjective Date of service: 07/29/18 Principal diagnosis: GI bleed Interval history: No acute distress. No active signs of bleeding overnight or this am. Denies abd pain or N/V. Tolerating clears. Objective - Constitutional Vitals: Temp Pulse Resp BP Pulse Ox 97.7 F 64 20 107/51 100 07/29/18 05:43 07/29/18 05:43 07/29/18 05:43 07/29/18 05:43 07/29/18 05:43 General appearance: no acute distress, other (thin appearing) - Respiratory Respiratory: bilateral: CTA - Cardiovascular Rhythm: regular - Gastrointestinal General gastrointestinal: Present: soft, non-tender, non-distended, normal bowel sounds - Neurologic Neurological: alert and oriented x3 - Labs CBC & Chem 7: 07/29/18 04:33 07/29/18 04:33 Labs: Laboratory Results - last 24 hr 07/29/18 07/29/18 04:33 04:33 WBC 13.6 H RBC 3.00 L Hgb 7.6 L Hct 23.6 L MCV 79 L MCH 26 L MCHC 32 RDW 20.4 H Plt Count 299 Sodium 138 Potassium 3.8 Chloride 105.8 Carbon Dioxide 26 Anion Gap 10 BUN 9 Creatinine 0.5 L Estimated GFR > 60 BUN/Creatinine Ratio 18 Glucose 140 H Calcium 8.4 <SHERI MURO - Last Filed: 07/29/18 12:41> Assessment and Plan Patient seen and examined. Agree with note above. Symptoms improved, tolerating po; no further hematochezia. Prednisone taper as above and outpatient f/u in GI clinic for management of suspected IBD. Objective - Constitutional Vitals: Temp Pulse Resp BP Pulse Ox 97.7 F 64 20 107/51 100 07/29/18 05:43 07/29/18 05:43 07/29/18 05:43 07/29/18 05:43 07/29/18 05:43 - Labs CBC & Chem 7: 07/29/18 04:33 07/29/18 04:33 Labs: Laboratory Results - last 24 hr 07/29/18 07/29/18 04:33 04:33 WBC 13.6 H RBC 3.00 L Hgb 7.6 L Hct 23.6 L MCV 79 L MCH 26 L MCHC 32 RDW 20.4 H Plt Count 299 Sodium 138 Potassium 3.8 Chloride 105.8 Carbon Dioxide 26 Anion Gap 10 BUN 9 Creatinine 0.5 L Estimated GFR > 60 BUN/Creatinine Ratio 18 Glucose 140 H Calcium 8.4
--- NOTE | 2018-07-29 12:13 | Discharge Summary ---
Providers - Providers Date of Admission: 07/27/18 12:10 Attending physician: CARL TORO MD 07/27/18 10:59 Consult to Physician [CONS] Routine Comment: Consulting Provider: SHERI MURO Physician Instructions: Reason For Exam: GI Bleed 07/28/18 17:25 Consult to Case Management [CONS] Routine Services Needed at Discharge: Dock Operations Supervisor Notified:: yola Additional Physician Instructions: FINANCIAL [employer]OURCES Primary care physician: IRON WORKER APPRENTICE Hospitalization Reason for admission: IBD Condition: Fair Hospital course: 22 YO Male with Bipolar, Schizophrenia, Malnutrition, Nicotine Dependence, Hemorrhoids presents to ED for evaluation. Pt states that he has experienced 6 episodes of bright red blood per rectum, as well as nausea and multiple episodes of vomiting. Pt reports "blood leaking from his butt". Pt also reports abdominal cramping and 15lbs unintentional weight loss over the past 2 months, as well as subjective fever. Pt transported to [facility] via private vehicle. Pt seen and evaluated in ED and found to have GI Bleed complicated by blood loss anemia, SIRS, severe malnutrition, as well as symptoms consistent with IBD. Pt transfused with PRBC and admitted to IMCU and initiated on GI bleeding protocol. GI consulted in ED. Pt also treated with IVF resuscitation therapy, and empiric IV antibiotic therapy. Pt denies chills, CP, Palpitations, ingestion of food/water from new or different sources, recent foreign travel, known ill contacts, skin rash, hemoptysis, GEIGER, or rectal trauma. Prior admission on 05/31 03/20 reviewed. All listed medication reconciled at time of admission. Pathology reviewed from prior admission and reveals evidence of IBD/Ulcerative Colitis. Patient was seen by GI, with review of ct abdomen done with the patient, showing mild circumferential thickening and fluid in the distal colon. H/H was monitored and patient started on IV steroids and changed to Oral with damian. Per mother they could not follow with GI outpatient due to cost in the past but now will be able to. They both understand the importance of the recommended Follow up. Patient was tolerating PO prior to discharge (1) IBD (inflammatory bowel disease)/colitis (2) SIRS (systemic inflammatory response syndrome) (3) GI bleed/Hematochezia (4) Symptomatic anemia (5) Malnutrition (6) Nicotine dependence unspecified, with withdrawal Disposition: DC- TO HOME OR SELFCARE Time spent for discharge: 35 mins Core Measure Documentation - Palliative Care Palliative Care/ Comfort Measures: Not Applicable - Core Measures Any of the following diagnoses?: none Exam - Physical Exam Narrative exam: General appearance: Present: resting comfortable - EENT Eyes: Present: PERRL ENT: hearing intact, clear oral mucosa - Neck Neck: Present: supple, normal ROM - Respiratory Respiratory effort: normal Respiratory: bilateral: CTA - Cardiovascular Heart Sounds: Present: S1 & S2. Absent: rub, click - Extremities Extremities: pulses symmetrical, No edema Peripheral Pulses: within normal limits - Abdominal General gastrointestinal: Present: soft, non-tender, non-distended, normal bowel sounds Male genitourinary: Present: normal - Integumentary Integumentary: Present: clear, warm, dry - Musculoskeletal Musculoskeletal: gait normal, strength equal bilaterally - Psychiatric Psychiatric: appropriate mood/affect, intact judgment & insight - Neurologic Neurologic: CNII-XII intact, moves all extremities - Constitutional Vitals: Temp Pulse Resp BP Pulse Ox 97.7 F 64 20 107/51 100 07/29/18 05:43 07/29/18 05:43 07/29/18 05:43 07/29/18 05:43 07/29/18 05:43 Plan Activity: advance as tolerated, fall precautions Diet: low fat Special Instructions: smoking cessation Follow up with: PRIMARY CAREMD [Primary Care Provider] - 7 Days SHERI MURO MD [Staff Physician] - 7 Days Forms: Accompanied Note Prescriptions: diphenhydrAMINE [Benadryl CAP] 50 mg PO QHS PRN #14 capsule PRN Reason: Sleep Ciprofloxacin HCl [Ciprofloxacin TAB] 500 mg PO Q12HR #10 tab metroNIDAZOLE [Flagyl] 500 mg PO Q12HR #10 tab Prednisone [predniSONE 10 mg (6-Day Pack, 21 Tabs)] 10 mg PO .TAPER #1 tab.ds.pk Pantoprazole [Protonix] 40 mg PO QDAY #30 tablet
[2018-07-29] MEDS ORDERED: PROTONIX PO SCH (22:00)
== END 2018-07-29 14:56 | disposition home or self-care (01) | DRG 377 ==
LOC: ED 09:33 → IMCU 12:10 → 3A 07-28 15:16
PROVIDERS: ADMIT Internal Medicine; ATTEND Internal Medicine
PROC: 30233N1 Transfusion of Nonautologous Red Blood Cells into Peripheral Vein, Percutaneous Approach (ICD-10-PCS; principal; 2018-07-27)
DX: K92.2 Gastrointestinal hemorrhage, unspecified (principal); E43 Unspecified severe protein-calorie malnutrition; R65.10 Systemic inflammatory response syndrome (SIRS) of non-infectious origin without acute organ dysfunction; F17.213 Nicotine dependence, cigarettes, with withdrawal; Z68.1 Body mass index [BMI] 19.9 or less, adult; K52.3 Indeterminate colitis; F31.9 Bipolar disorder, unspecified; F20.9 Schizophrenia, unspecified; D64.9 Anemia, unspecified; Z71.6 Tobacco abuse counseling
CPT/HCPCS: 36415; 36430; 74177; 80048; 80053; 80076; 82140; 85007; 85025; 85027; 85610; 85730; 86850; 86900; 86901; 86920; 87806; 93005; 93010; 96374; G0378; C9113; J0692; J2920; J2930; J7030; J7040; P9016; Q9967

== ENCOUNTER 2018-08-15 20:16 | Inpatient (IN) | payer SELFPAY ==
--- NOTE | 2018-08-15 22:04 | Event Note ---
ED Screening Note Date of service: 08/15/18 Time: 22:02 ED Screening Note: 22 year old male c/o abd pain, blood from rectum, nausea and vomiting for 1 month. This initial assessment/diagnostic orders/clinical plan/treatment(s) is/are subject to change based on patients health status, clinical progression and re- assessment by fellow clinical providers in the ED. Further treatment and workup at subsequent clinical providers discretion. Patient/guardian urged not to elope from the ED as their condition may be serious if not clinically assessed and managed. Initial orders include:
[2018-08-15 22:59] LABS: Mean Corpuscular HGB Conc 32 % (32-34); Mean Corpuscular Volume 74 fl (84-94); Platelet Count 401 K/mm3 (140-440); Red Blood Count 2.52 M/mm3 (3.65-5.03)
[2018-08-15 23:03] LABS: Hematocrit 18.7 % (35.5-45.6); Red Cell Distribution Width 21.6 % (13.2-15.2)
[2018-08-15 23:16] LABS: Alanine Aminotransferase 13 units/L (7-56); Albumin 3.4 g/dL (3.9-5); BUN/Creatinine Ratio 9; Blood Urea Nitrogen 6 mg/dL (9-20); Calcium 9.1 mg/dL (8.4-10.2); Hemolysis Index 1
[2018-08-16 00:06] LABS: Band Neutrophils # (Manual) 0.7 K/mm3; Basophils % (Manual) 0 % (0.0-1.8); Hypochromasia 3+; Stomatocytes Few; Tear Drop Cells Few; Total Cells Counted 100
[2018-08-16 00:07] LABS: Platelet Estimate Consistent w Auto
[2018-08-16] MEDS ORDERED: NACL 0.9% 500 ML 500 ML IV ONE ×3 (01:25→12:00)
[2018-08-16] MEDS ORDERED: SOLU-Medrol IV ONE (01:27)
--- NOTE | 2018-08-16 01:34 | Emergency Department Report ---
ED GI Bleed HPI - General Chief complaint: Abdominal Pain Stated complaint: VOMITING,ABD PAIN, BLOOD IN STOOL,NAUSEA,DIZZINESS Time Seen by Provider: 08/16/18 00:45 Source: patient, family Mode of arrival: Wheelchair Limitations: No Limitations - History of Present Illness Initial comments: 22-year-old male with history of ulcerative colitis, bipolar disorder, schizophrenia presents to ED with abdominal pain, blood in stool. Patient was just discharged from this facility approximately 2 weeks ago for same and received blood transfusion at that time. Patient was discharged home on Cipro Flagyl and 6-day prednisone pack. Patient returns today reporting lower abdominal pain that is same as it was when he was admitted 2 weeks ago. Also reports large volume of blood passed in stool this evening, with associated dizziness. MD complaint: gross hematochezia -: This evening Location: suprapubic Radiation: none Quality: cramping Consistency: intermittent Improves with: none Worsens with: none Context: history of GI bleed Associated Symptoms: abdominal pain, weakness. denies: nausea, vomiting - Related Data Home Medications Medication Instructions Recorded Confirmed Last Taken OLANzapine [Zyprexa] 10 mg PO DAILY 06/10/18 08/16/18 Unknown Previous Rx's Medication Instructions Recorded Last Taken Type Ciprofloxacin HCl [Ciprofloxacin 500 mg PO Q12HR #10 tab 07/29/18 Unknown Rx TAB] Pantoprazole [Protonix] 40 mg PO QDAY #30 tablet 07/29/18 Unknown Rx Prednisone [predniSONE 10 mg 10 mg PO .TAPER #1 tab.ds.pk 07/29/18 Unknown Rx (6-Day Pack, 21 Tabs)] diphenhydrAMINE [Benadryl CAP] 50 mg PO QHS PRN #14 capsule 07/29/18 Unknown Rx metroNIDAZOLE [Flagyl] 500 mg PO Q12HR #10 tab 07/29/18 Unknown Rx Allergies Allergy/AdvReac Type Severity Reaction Status Date / Time No Known Allergies Allergy Verified 07/27/18 09:35 ED Review of Systems ROS: Stated complaint: VOMITING,ABD PAIN, BLOOD IN STOOL,NAUSEA,DIZZINESS Other details as noted in HPI Comment: All other systems reviewed and negative Constitutional: denies: fever Respiratory: denies: shortness of breath Cardiovascular: denies: chest pain Gastrointestinal: abdominal pain, hematochezia. denies: nausea, vomiting Neurological: other (reports lightheadedness) ED Past Medical Hx - Past Medical History Hx Hypertension: No Hx Heart Attack/AMI: No Hx Liver Disease: No Hx Renal Disease: No Hx Sickle Cell Disease: No Hx Seizures: No Hx Psychiatric Treatment: Yes (BIPOLAR, SCHIZOPHRENIA) Hx Asthma: No Hx COPD: No Additional medical history: HEMMORHOIDS - Surgical History Past Surgical History?: No Hx Pacemaker: No Hx Internal Defibrillator: No - Social History Smoking Status: Unknown if ever smoked Substance Use Type: None - Medications Home Medications: Home Medications Medication Instructions Recorded Confirmed Last Taken Type OLANzapine [Zyprexa] 10 mg PO DAILY 06/10/18 08/16/18 Unknown History Ciprofloxacin HCl [Ciprofloxacin 500 mg PO Q12HR #10 tab 07/29/18 08/16/18 Unknown Rx TAB] Pantoprazole [Protonix] 40 mg PO QDAY #30 tablet 07/29/18 08/16/18 Unknown Rx Prednisone [predniSONE 10 mg 10 mg PO .TAPER #1 tab.ds.pk 07/29/18 08/16/18 Unknown Rx (6-Day Pack, 21 Tabs)] diphenhydrAMINE [Benadryl CAP] 50 mg PO QHS PRN #14 capsule 07/29/18 08/16/18 Unknown Rx metroNIDAZOLE [Flagyl] 500 mg PO Q12HR #10 tab 07/29/18 08/16/18 Unknown Rx ED Physical Exam - General Limitations: No Limitations General appearance: alert, in no apparent distress - Head Head exam: Present: atraumatic, normocephalic - Eye Eye exam: Present: normal appearance - ENT ENT exam: Present: mucous membranes moist - Neck Neck exam: Present: normal inspection - Respiratory Respiratory exam: Present: normal lung sounds bilaterally. Absent: respiratory distress - Cardiovascular Cardiovascular Exam: Present: normal rhythm, tachycardia - GI/Abdominal GI/Abdominal exam: Present: soft. Absent: distended, tenderness - Rectal Rectal exam: Present: heme (+) stool, other (bloody mucous on rectal exam) - Extremities Exam Extremities exam: Present: normal inspection - Neurological Exam Neurological exam: Present: alert, oriented X3 - Psychiatric Psychiatric exam: Present: normal affect, normal mood - Skin Skin exam: Present: warm, dry, intact, normal color. Absent: rash ED Course Vital Signs 08/15/18 08/15/18 08/16/18 20:40 21:57 01:02 Temperature 99.1 F 99.1 F Pulse Rate 115 H 115 H Respiratory 18 18 Rate Blood Pressure 107/61 107/61 O2 Sat by Pulse 100 100 99 Oximetry 08/16/18 08/16/18 08/16/18 01:16 01:30 01:32 Temperature Pulse Rate Respiratory 18 Rate Blood Pressure 117/67 117/67 O2 Sat by Pulse 100 100 100 Oximetry 08/16/18 08/16/18 08/16/18 01:46 02:00 02:16 Temperature Pulse Rate Respiratory Rate Blood Pressure 126/72 121/73 126/72 O2 Sat by Pulse 100 100 Oximetry 08/16/18 08/16/18 08/16/18 02:30 02:46 03:00 Temperature Pulse Rate 97 H 93 H Respiratory 18 15 Rate Blood Pressure 135/74 135/74 120/66 O2 Sat by Pulse 100 Oximetry 08/16/18 03:16 Temperature Pulse Rate 93 H Respiratory 16 Rate Blood Pressure 121/73 O2 Sat by Pulse 100 Oximetry ED Medical Decision Making - Lab Data Result diagrams: 08/15/18 22:29 08/15/18 22:29 - Medical Decision Making 22-year-old male with ulcerative colitis presents to ED with rectal bleeding and lightheadedness. Hemoglobin 6.0, vital signs stable. Abdomen is soft, minimally tender on exam. Blood transfusion ordered. GI contacted, will see patient tomorrow. IV Solu-Medrol given and for possible colitis flare. Spoke with the hospitalist, Dr. Friedman, for admission. - Differential Diagnosis ulcerative colitis, anemia Critical Care Time: Yes Critical care time in (mins) excluding proc time.: 35 Critical care attestation.: If time is entered above; I have spent that time in minutes in the direct care of this critically ill patient, excluding procedure time. Critical Care Time: 35 minutes ED Disposition Clinical Impression: Anemia requiring transfusions, Rectal bleed Disposition: 09 OP ADMIT IP TO THIS HOSP Is pt being admited?: Yes Condition: Stable Referrals: FAZAL ALVES MD [Primary Care Provider] - 3-5 Days Time of Disposition: 01:34
[2018-08-16] MEDS ORDERED: ZOFRAN IV PRN (02:20)
[2018-08-16] MEDS ORDERED: TYLENOL PO PRN (02:20)
[2018-08-16] MEDS ORDERED: SODIUM CHLORIDE FLUSH SYRINGE 10 ML IV PRN (02:20)
[2018-08-16] MEDS ORDERED: ZOFRAN IV ONE (02:23)
--- NOTE | 2018-08-16 02:54 | History and Physical Report ---
<AUSTEN COLLINS - Last Filed: 08/16/18 05:15> History of Present Illness Date of examination: 08/16/18 Date of admission: 08/16/2018 Chief complaint: Abdominal pain 2 weeks History of present illness: Patient is a 22-year-old female with PMHx of bipolar disorder, schizophrenia who presents to the ER with complaints of abdominal pain, nausea and bloody diarrhea x 2 weeks. According to the pt and his mother, he was admitted 2 weeks ago with the same complaints, he was seen by GI and had a colonoscopy and was diagnosed with ulcerative colitis. Pt states that he was discharge with PO prednisone (6- day pack), flagyl, cipro and protonix, he completed the prednisone but his symptoms didn't resolved, he feels week and dizzinesss. Pt states that he started to throw up today and continues to have persistent bloody diarrhea, he decided to come to the ER for evaluation. In the ER, pt had an H&H of 6.0 & 18.7, his potassium was 3.0, pt was orderedoo blood transfusion and admitted for further management. Past History Past Medical History: other (bipolar disorder, schizophrenia) Past Surgical History: No surgical history Social history: no significant social history Family history: no significant family history Medications and Allergies Allergies Allergy/AdvReac Type Severity Reaction Status Date / Time No Known Allergies Allergy Verified 07/27/18 09:35 Home Medications Medication Instructions Recorded Confirmed Last Taken Type OLANzapine [Zyprexa] 10 mg PO DAILY 06/10/18 08/16/18 Unknown History Ciprofloxacin HCl [Ciprofloxacin 500 mg PO Q12HR #10 tab 07/29/18 08/16/18 Unknown Rx TAB] Pantoprazole [Protonix] 40 mg PO QDAY #30 tablet 07/29/18 08/16/18 Unknown Rx Prednisone [predniSONE 10 mg 10 mg PO .TAPER #1 tab.ds.pk 07/29/18 08/16/18 Unknown Rx (6-Day Pack, 21 Tabs)] diphenhydrAMINE [Benadryl CAP] 50 mg PO QHS PRN #14 capsule 07/29/18 08/16/18 Unknown Rx metroNIDAZOLE [Flagyl] 500 mg PO Q12HR #10 tab 07/29/18 08/16/18 Unknown Rx Active Meds: Active Medications Acetaminophen (Tylenol) 650 mg PO Q4H PRN PRN Reason: Pain MILD(1-3)/Fever >100.5/JACOBSON Ondansetron HCl (Zofran) 4 mg IV Q8H PRN PRN Reason: Nausea And Vomiting Sodium Chloride (Sodium Chloride Flush Syringe 10 Ml) 10 ml IV BID JUAN Sodium Chloride (Sodium Chloride Flush Syringe 10 Ml) 10 ml IV PRN PRN PRN Reason: LINE FLUSH Review of Systems Gastrointestinal: abdominal pain, nausea, vomiting, diarrhea Neurological: weakness Exam - Constitutional Vitals: Temp Pulse Resp BP Pulse Ox 99.1 F 115 H 18 126/72 100 08/15/18 21:57 08/15/18 21:57 08/16/18 01:32 08/16/18 02:16 08/16/18 02:16 General appearance: Present: no acute distress - EENT Eyes: Present: EOM intact ENT: hearing intact - Neck Neck: Present: supple, normal ROM - Respiratory Respiratory effort: normal Respiratory: bilateral: CTA - Cardiovascular Rhythm: regular Heart Sounds: Present: S1 & S2 - Extremities Extremities: no ischemia - Abdominal Male genitourinary: Present: deferred - Rectal Rectal Exam: deferred - Integumentary Integumentary: Present: clear - Musculoskeletal Musculoskeletal: strength equal bilaterally Results - Labs CBC & Chem 7: 08/15/18 22:29 08/15/18 22:29 Labs: Laboratory Last Values WBC 9.2 K/mm3 (4.5-11.0) 08/15/18 22:29 RBC 2.52 M/mm3 (3.65-5.03) L 08/15/18 22:29 Hgb 6.0 gm/dl (11.8-15.2) L 08/15/18 22:29 Hct 18.7 % (35.5-45.6) L* 08/15/18 22:29 MCV 74 fl (84-94) L 08/15/18 22:29 MCH 24 pg (28-32) L 08/15/18 22:29 MCHC 32 % (32-34) 08/15/18 22:29 RDW 21.6 % (13.2-15.2) H 08/15/18 22:29 Plt Count 401 K/mm3 (140-440) 08/15/18 22:29 Add Manual Diff Complete 08/15/18 22:29 Total Counted 100 08/15/18 22:29 Seg Neuts % (Manual) 73.0 % (40.0-70.0) H 08/15/18 22:29 8.0 % 08/15/18 22:29 14.0 % (13.4-35.0) 08/15/18 22:29 Reactive Lymphs % (Man) 0 % 08/15/18 22: 3.0 % (0.0-7.3) 08/15/18 22:29 2.0 % (0.0-4.3) 08/15/18 22:29 0 % (0.0-1.8) 08/15/18 22:29 0 % 08/15/18 22:29 0 % 08/15/18 22:29 0 % 08/15/18 22:29 0 % 08/15/18: Nucleated RBC % Not Reportable 08/15/18 22:29 Seg Neutrophils # Man 6.7 K/mm3 (1.8-7.7) 08/15/18 22:29 Band Neutrophils # 0.7 K/mm3 08/15/18 22:29 1.3 K/mm3 (1.2-5.4) 08/15/18 22:29 Abs React Lymphs (Man) 0.0 K/mm3 08/15/18 22:29 0.3 K/mm3 (0.0-0.8) 08/15/18 22:29 0.2 K/mm3 (0.0-0.4) 08/15/18 22:29 0.0 K/mm3 (0.0-0.1) 08/15/18 22:29 0.0 K/mm3 08/15/18 22:29 0.0 K/mm3 08/15/18 22:29 0.0 K/mm3 08/15/18 22:29 Blast Cells # 0.0 K/mm3 08/15/18 22:29 WBC Morphology Not Reportable 08/15/18 22:29 Hypersegmented Neuts Not Reportable 08/15/18 22:29 Hyposegmented Neuts Not Reportable 08/15/18 22:29 Hypogranular Neuts Not Reportable 08/15/18 22:29 Not Reportable 08/15/18 22:29 Not Reportable 08/15/18 22:29 Not Reportable 08/15/18 22:29 Not Reportable 08/15/18 22:29 Not Reportable 08/15/18 22:29 Not Reportable 08/15/18 22:29 Consistent w auto 08/15/18 22:29 Not Reportable 08/15/18 22:29 Plt Clumps, EDTA Not Reportable 08/15/18 22:29 Not Reportable 08/15/18 22:29 Not Reportable 08/15/18 22:29 Not Reportable 08/15/18 22:29 Plt Morphology Comment Not Reportable 08/15/18 22:29 RBC Morphology Not Reportable 08/15/18 22:29 Dimorphic RBCs Not Reportable 08/15/18 22:29 Few 08/15/18 22:29 3+ 08/15/18 22:29 Not Reportable 08/15/18 22:29 Not Reportable 08/15/18 22:29 Not Reportable 08/15/18 22:29 Not Reportable 08/15/18 22:29 Not Reportable 08/15/18 22:29 Not Reportable 08/15/18 22:29 Not Reportable 08/15/18 22:29 Not Reportable 08/15/18 22:29 Few 08/15/18 22:29 Not Reportable 08/15/18 22:29 Few 08/15/18 22:29 Not Reportable 08/15/18 22:29 Not Reportable 08/15/18 22:29 Not Reportable 08/15/18 22:29 Not Reportable 08/15/18 22:29 Not Reportable 08/15/18 22:29 Not Reportable 08/15/18 22:29 Not Reportable 08/15/18 22:29 Acanthocytes (Spur) Not Reportable 08/15/18 22:29 Rouleaux Not Reportable 08/15/18 22:29 Not Reportable 08/15/18 22:29 Not Reportable 08/15/18 22:29 Not Reportable 08/15/18 22:29 Not Reportable 08/15/18 22:29 Hem Pathologist Commnt No 08/15/18 22:29 Sodium 137 mmol/L (137-145) 08/15/18 22:29 Potassium 3.0 mmol/L (3.6-5.0) L 08/15/18 22:29 Chloride 98.4 mmol/L (98-107) 08/15/18 22:29 Carbon Dioxide 25 mmol/L (22-30) 08/15/18 22:29 17 mmol/L 08/15/18 22:29 BUN 6 mg/dL (9-20) L 08/15/18 22:29 0.7 mg/dL (0.8-1.5) L 08/15/18 22:29 Estimated GFR > 60 ml/min 08/15/18 22:29 9 % 08/15/18 22:29 Glucose 116 mg/dL (75-100) H 08/15/18 22:29 Calcium 9.1 mg/dL (8.4-10.2) 08/15/18:29 0.30 mg/dL (0.1-1.2) 08/15/18 22:29 AST 13 units/L (5-40) 08/15/18: ALT 13 units/L (7-56) 08/15/18:29 50 units/L (35-129) 08/15/18 22:29 6.7 g/dL (6.3-8.2) 08/15/18 22:29 3.4 g/dL (3.9-5) L 08/15/18 22:29 1.0 % 08/15/18 22:29 Assessment and Plan Assessment and plan: 1. Abdominal pain (due to above) 2. Nausea and vomiting 3. Acute blood loss anemia 4. Ulcerative colitis 5. GI bleed due to UC 6. Hypokalemia 7. H/o bipolar disorder Plan Pt is admitted to surgical floor Consult GI for evaluation 2 units of packed red blood cells IV fluids for hydration Anti-emetics with Zofran Pain control PRN with morphine Protonix 40 IV Q day Replace potassium Plan of care was discussed with patient, voiced understanding Patient's condition and plan of care was discussed with Dr. Friedman Advance Directives: Yes VTE prophylaxis?: Mechanical Contraindication Mechanical VTE Prophylaxis: Contraindicated (active bleeding) Plan of care discussed with patient/family: Yes <DEANGELO FRIEDMAN - Last Filed: 08/16/18 23:05> History of Present Illness Date of admission: 08/16/18 02:18 Medications and Allergies Active Meds: Active Medications Acetaminophen (Tylenol) 650 mg PO Q4H PRN PRN Reason: Pain MILD(1-3)/Fever >100.5/JACOBSON Sodium Chloride (Nacl 0.9% 1000 Ml) 1,000 mls @ 150 mls/hr IV DIRECT JUAN Morphine Sulfate (Morphine) 2 mg IV Q4H PRN PRN Reason: Pain, Moderate (4-6) Ondansetron HCl (Zofran) 4 mg IV Q8H PRN PRN Reason: Nausea And Vomiting Pantoprazole Sodium (Protonix) 40 mg IV BID [facility] Potassium Chloride (K-Dur) 40 meq PO QDAY [facility] Sodium Chloride (Sodium Chloride Flush Syringe 10 Ml) 10 ml IV BID [facility] Last Admin: 08/16/18 03:00 Dose: 10 ml Documented by: Sodium Chloride (Sodium Chloride Flush Syringe 10 Ml) 10 ml IV PRN PRN PRN Reason: LINE FLUSH Exam - Constitutional Vitals: Temp Pulse Resp BP Pulse Ox 98.4 F 94 H 17 116/60 98 08/16/18 05:44 08/16/18 05:44 08/16/18 05:44 08/16/18 05:44 08/16/18 05:44 Results - Labs CBC & Chem 7: 08/16/18 06:53 08/16/18 06:53 Labs: Laboratory Last Values WBC 9.2 K/mm3 (4.5-11.0) 08/15/18 22:29 RBC 2.52 M/mm3 (3.65-5.03) L 08/15/18 22:29 Hgb 6.0 gm/dl (11.8-15.2) L 08/15/18 22:29 Hct 18.7 % (35.5-45.6) L* 08/15/18 22:29 MCV 74 fl (84-94) L 08/15/18 22:29 MCH 24 pg (28-32) L 08/15/18 22:29 MCHC 32 % (32-34) 08/15/18 22:29 RDW 21.6 % (13.2-15.2) H 08/15/18 22:29 Plt Count 401 K/mm3 (140-440) 08/15/18 22:29 Add Manual Diff Complete 08/15/18 22:29 Total Counted 100 08/15/18 22:29 Seg Neuts % (Manual) 73.0 % (40.0-70.0) H 08/15/18 22:29 8.0 % 08/15/18 22: 14.0 % (13.4-35.0) 08/15/18 22:29 Reactive Lymphs % (Man) 0 % 08/15/18 22:29 3.0 % (0.0-7.3) 08/15/18 22:29 2.0 % (0.0-4.3) 08/15/18 22:29 0 % (0.0-1.8) 08/15/18 22:29 0 % 08/15/18 22:29 0 % 08/15/18 22:29 0 % 08/15/18 22:29 0 % 08/15/18 22: Nucleated RBC % Not Reportable 08/15/18 22:29 Seg Neutrophils # Man 6.7 K/mm3 (1.8-7.7) 08/15/18 22: Band Neutrophils # 0.7 K/mm3 08/15/18 22:29 1.3 K/mm3 (1.2-5.4) 08/15/18 22:29 Abs React Lymphs (Man) 0.0 K/mm3 08/15/18 22:29 0.3 K/mm3 (0.0-0.8) 08/15/18 22:29 0.2 K/mm3 (0.0-0.4) 08/15/18 22:29 0.0 K/mm3 (0.0-0.1) 08/15/18 22:29 0.0 K/mm3 08/15/18 22:29 0.0 K/mm3 08/15/18 22:29 0.0 K/mm3 08/15/18 22:29 Blast Cells # 0.0 K/mm3 08/15/18 22:29 WBC Morphology Not Reportable 08/15/18 22:29 Hypersegmented Neuts Not Reportable 08/15/18 22:29 Hyposegmented Neuts Not Reportable 08/15/18 22:29 Hypogranular Neuts Not Reportable 08/15/18 22:29 Not Reportable 08/15/18 22:29 Not Reportable 08/15/18 22:29 Not Reportable 08/15/18 22:29 Not Reportable 08/15/18 22:29 Not Reportable 08/15/18 22:29 Not Reportable 08/15/18 22:29 Consistent w auto 08/15/18 22:29 Not Reportable 08/15/18 22:29 Plt Clumps, EDTA Not Reportable 08/15/18 22:29 Not Reportable 08/15/18 22:29 Not Reportable 08/15/18 22:29 Not Reportable 08/15/18 22:29 Plt Morphology Comment Not Reportable 08/15/18 22:29 RBC Morphology Not Reportable 08/15/18 22:29 Dimorphic RBCs Not Reportable 08/15/18 22:29 Few 08/15/18 22:29 3+ 08/15/18 22:29 Not Reportable 08/15/18 22:29 Not Reportable 08/15/18 22:29 Not Reportable 08/15/18 22:29 Not Reportable 08/15/18 22:29 Not Reportable 08/15/18 22:29 Not Reportable 08/15/18 22:29 Not Reportable 08/15/18 22:29 Not Reportable 08/15/18 22:29 Few 08/15/18 22:29 Not Reportable 08/15/18 22:29 Few 08/15/18 22:29 Not Reportable 08/15/18 22:29 Not Reportable 08/15/18 22:29 Not Reportable 08/15/18 22:29 Not Reportable 08/15/18 22:29 Not Reportable 08/15/18 22:29 Not Reportable 08/15/18 22:29 Not Reportable 08/15/18 22:29 Acanthocytes (Spur) Not Reportable 08/15/18 22:29 Rouleaux Not Reportable 08/15/18 22:29 Not Reportable 08/15/18 22:29 Not Reportable 08/15/18 22:29 Not Reportable 08/15/18 22:29 Not Reportable 08/15/18 22:29 Hem Pathologist Commnt No 08/15/18 22:29 Sodium 137 mmol/L (137-145) 08/15/18 22:29 Potassium 3.0 mmol/L (3.6-5.0) L 08/15/18 22:29 Chloride 98.4 mmol/L (98-107) 08/15/18 22:29 Carbon Dioxide 25 mmol/L (22-30) 08/15/18 22:29 17 mmol/L 08/15/18 22:29 BUN 6 mg/dL (9-20) L 08/15/18 22:29 0.7 mg/dL (0.8-1.5) L 08/15/18 22:29 Estimated GFR > 60 ml/min 08/15/18 22:29 9 % 08/15/18 22:29 Glucose 116 mg/dL (75-100) H 08/15/18 22:29 Calcium 9.1 mg/dL (8.4-10.2) 08/15/18 22:29 0.30 mg/dL (0.1-1.2) 08/15/18 22:29 AST 13 units/L (5-40) 08/15/18 22:29 ALT 13 units/L (7-56) 08/15/18 22:29 50 units/L (35-129) 08/15/18 22:29 6.7 g/dL (6.3-8.2) 08/15/18 22:29 3.4 g/dL (3.9-5) L 08/15/18 22:29 1.0 % 08/15/18 22:29 Yellow (Yellow) 08/16/18 Unknown Cloudy (Clear) 08/16/18 Unknown 6.0 (5.0-7.0) 08/16/18 Unknown Ur Specific [place] 1.028 (1.003-1.030) 08/16/18 Unknown 100 mg/dl mg/dL (Negative) 08/16/18 Unknown Neg mg/dL (Negative) 08/16/18 Unknown 20 mg/dL (Negative) 08/16/18 Unknown Neg (Negative) 08/16/18 Unknown Neg (Negative) 08/16/18 Unknown Neg (Negative) 08/16/18 Unknown < 2.0 mg/dL (<2.0) 08/16/18 Unknown Ur Leukocyte Esterase Neg (Negative) 08/16/18 Unknown < 1.0 /HPF (0.0-6.0) 08/16/18 Unknown < 1.0 /HPF (0.0-6.0) 08/16/18 Unknown 3+ /HPF 08/16/18 Unknown Assessment and Plan Assessment and plan: 22-year-old man with a history of ulcerative colitis, bipolar, schizophrenia comes emergency room with complaints of blood per rectum, at least 6 episodes and lower abdominal crampy pain. Most recently discharged from the hospital, stated that he is compliant with medication. Patient with flare of his ulcerative colitis, blood loss anemia, transfused total of 3 units of packed red blood cells, start IV fluid, GI is consulted for the patient
[2018-08-16] MEDS: SODIUM CHLORIDE FLUSH SYRINGE 10 ML IV SCH ×3 (03:00→21:57)
[2018-08-16 03:30] LABS: Bilirubin,Urine NEG (Negative); Blood,Urine NEG (Negative); Color,Urine Yellow (Yellow); Mucus,Urine 3+ /HPF; Urobilinogen,Urine < 2.0 mg/dL (<2.0)
[2018-08-16 03:31] LABS: RBC,Urine < 1.0 /HPF (0.0-6.0); WBC,Urine < 1.0 /HPF (0.0-6.0)
[2018-08-16] MEDS ORDERED: KCL 20MEQ/100ML 20 MEQ/100 ML BAG IV SCH (04:00)
[2018-08-16] MEDS ORDERED: MORPHINE IV PRN (06:21)
[2018-08-16] MEDS: NACL 0.9% 1000 ML 1,000 ML IV SCH ×2 (06:33→18:21)
[2018-08-16 08:07] LABS: Mean Corpuscular HGB Conc 32 % (32-34); Mean Corpuscular Volume 73 fl (84-94); Platelet Count 301 K/mm3 (140-440); Red Blood Count 2.26 M/mm3 (3.65-5.03)
[2018-08-16 08:13] LABS: Hematocrit 16.5 % (35.5-45.6); Hemoglobin 5.3 gm/dl (11.8-15.2); Red Cell Distribution Width 21.3 % (13.2-15.2)
[2018-08-16 08:24] LABS: BUN/Creatinine Ratio 12; Blood Urea Nitrogen 6 mg/dL (9-20); Calcium 8.5 mg/dL (8.4-10.2); Hemolysis Index 1
[2018-08-16 09:32] LABS: Basophils % (Manual) 0 % (0.0-1.8); Eosinophils % (Manual) 0 % (0.0-4.3); Monocytes % (Manual) 0 % (0.0-7.3); Total Cells Counted 100
[2018-08-16 09:33] LABS: Anisocytosis 1+; Hypochromasia 2+; Platelet Estimate Consistent w Auto
[2018-08-16] MEDS ORDERED: PROTONIX IV SCH (10:00)
--- NOTE | 2018-08-16 10:28 | Event Note ---
Date: 08/16/18 This is a follow-up from an admission earlier this morning. Patient seen and examined. We will continue plan as outlined in H&P. I discussed the case with GI. Total visit time equals 25 minutes with greater than 50% spent on correlation of care and counseling.
[2018-08-16] MEDS: K-DUR PO SCH (10:36)
[2018-08-16] MEDS: PROTONIX PO SCH (10:36)
--- NOTE | 2018-08-16 10:44 | Gastroenterology Consultation ---
<MALIK RODRIGUEZ - Last Filed: 08/16/18 11:10> History of Present Illness - Reason for Consult Consult date: 08/16/18 GI bleed Requesting physician: ILA LOPEZ - History of Present Illness Patient is a 22 y/o male who is well known to our service with PMH of bipolar disorder, shizophrenia, and recently diagnosed ulcerative colitis (s/p colonoscopy 06/11/18 for colitis revealing moderate to severe colitis throughout the entire colon; path findings c/w IBD/likely UC) who presented to ED with recurrent abd pain, N/V, and bloody diarrhea with associated dizziness after being off his medications/steroids for ~1 week (was discharged home 07/29/18 on prednisone, flagyl, cipro, and PPI; no clinic f/u as of yet, but has an outpatient appt scheduled for later this month per pt). This morning patient was resting in bed w/o acute distress. Reports feeling better with N/V now resolved. Has some remaining lower abdominal discomfort. No active signs of bleeding this am. Admits to recent chills but denies fever, wt loss, CP, SOB, hematemesis, or melena. Past History Past Medical History: other (bipolar disorder, schizophrenia, UC) Past Surgical History: No surgical history Social history: no significant social history Family history: no significant family history Medications and Allergies Allergies Allergy/AdvReac Type Severity Reaction Status Date / Time No Known Allergies Allergy Verified 07/27/18 09:35 Home Medications Medication Instructions Recorded Confirmed Last Taken Type OLANzapine [Zyprexa] 10 mg PO DAILY 06/10/18 08/16/18 Unknown History Ciprofloxacin HCl [Ciprofloxacin 500 mg PO Q12HR #10 tab 07/29/18 08/16/18 Unknown Rx TAB] Pantoprazole [Protonix] 40 mg PO QDAY #30 tablet 07/29/18 08/16/18 Unknown Rx Prednisone [predniSONE 10 mg 10 mg PO .TAPER #1 tab.ds.pk 07/29/18 08/16/18 Unknown Rx (6-Day Pack, 21 Tabs)] diphenhydrAMINE [Benadryl CAP] 50 mg PO QHS PRN #14 capsule 07/29/18 08/16/18 Unknown Rx metroNIDAZOLE [Flagyl] 500 mg PO Q12HR #10 tab 07/29/18 08/16/18 Unknown Rx Active Meds: Active Medications Acetaminophen (Tylenol) 650 mg PO Q4H PRN PRN Reason: Pain MILD(1-3)/Fever >100.5/JACOBSON Sodium Chloride (Nacl 0.9% 1000 Ml) 1,000 mls @ 150 mls/hr IV DIRECT [facility] Last Admin: 08/16/18 06:33 Dose: 150 mls/hr Documented by: Morphine Sulfate (Morphine) 2 mg IV Q4H PRN PRN Reason: Pain, Moderate (4-6) Olanzapine (Zyprexa) 10 mg PO DAILY [facility] Last Admin: 08/16/18 10:36 Dose: 10 mg Documented by: Ondansetron HCl (Zofran) 4 mg IV Q8H PRN PRN Reason: Nausea And Vomiting Pantoprazole Sodium (Protonix) 40 mg PO QDAY [facility] Last Admin: 08/16/18 10:36 Dose: 40 mg Documented by: Potassium Chloride (K-Dur) 40 meq PO QDAY [facility] Last Admin: 08/16/18 10:36 Dose: 40 meq Documented by: Sodium Chloride (Sodium Chloride Flush Syringe 10 Ml) 10 ml IV BID [facility] Last Admin: 08/16/18 10:37 Dose: 10 ml Documented by: Sodium Chloride (Sodium Chloride Flush Syringe 10 Ml) 10 ml IV PRN PRN PRN Reason: LINE FLUSH medications reviewed/updated as required Review of Systems - Review of Systems All systems: negative Gastrointestinal: abdominal pain, nausea, vomiting, hematochezia Exam - Constitutional Vital Signs: Temp Pulse Resp BP Pulse Ox 98.4 F 94 H 17 116/60 98 08/16/18 05:44 08/16/18 05:44 08/16/18 05:44 08/16/18 05:44 08/16/18 05:44 General appearance: no acute distress, other (thin appearing) - Respiratory Respiratory: bilateral: CTA - Cardiovascular Rhythm: regular - Gastrointestinal General gastrointestinal: Present: soft, tender (slight TTP in lower abdomen), non-distended, normal bowel sounds - Neurologic Neurological: alert and oriented x3 - Labs CBC & Chem 7: 08/16/18 06:53 08/16/18 06:53 Lab Results: Laboratory Results - last 24 hr 08/15/18 08/15/18 08/16/18 22:29 22:29 02:45 WBC 9.2 RBC 2.52 L Hgb 6.0 L Hct 18.7 L* MCV 74 L MCH 24 L MCHC 32 RDW 21.6 H Plt Count 401 Add Manual Diff Complete Total Counted 100 Seg Neutrophils % Seg Neuts % (Manual) 73.0 H Band Neutrophils % 8.0 Lymphocytes % (Manual) 14.0 Reactive Lymphs % (Man) 0 Monocytes % (Manual) 3.0 Eosinophils % (Manual) 2.0 Basophils % (Manual) 0 Metamyelocytes % 0 Myelocytes % 0 Promyelocytes % 0 Blast Cells % 0 Nucleated RBC % Not Reportable Seg Neutrophils # Man 6.7 Band Neutrophils # 0.7 Lymphocytes # (Manual) 1.3 Abs React Lymphs (Man) 0.0 Monocytes # (Manual) 0.3 Eosinophils # (Manual) 0.2 Basophils # (Manual) 0.0 Metamyelocytes # 0.0 Myelocytes # 0.0 Promyelocytes # 0.0 Blast Cells # 0.0 WBC Morphology Not Reportable Hypersegmented Neuts Not Reportable Hyposegmented Neuts Not Reportable Hypogranular Neuts Not Reportable Smudge Cells Not Reportable Toxic Granulation Not Reportable Toxic Vacuolation Not Reportable Dohle Bodies Not Reportable Pelger-Huet Anomaly Not Reportable Lj Rods Not Reportable Platelet Estimate Consistent w auto Clumped Platelets Not Reportable Plt Clumps, EDTA Not Reportable Large Platelets Not Reportable Giant Platelets Not Reportable Platelet Satelliting Not Reportable Plt Morphology Comment Not Reportable RBC Morphology Not Reportable Dimorphic RBCs Not Reportable Polychromasia Few Hypochromasia 3+ Poikilocytosis Not Reportable Anisocytosis Not Reportable Microcytosis Not Reportable Macrocytosis Not Reportable Spherocytes Not Reportable Pappenheimer Bodies Not Reportable Sickle Cells Not Reportable Target Cells Not Reportable Tear Drop Cells Few Ovalocytes Not Reportable Stomatocytes Few Helmet Cells Not Reportable [place] Bodies Not Reportable [place] Rings Not Reportable Zrai Cells Not Reportable Bite Cells Not Reportable Crenated Cell Not Reportable Elliptocytes Not Reportable Acanthocytes (Spur) Not Reportable Rouleaux Not Reportable Hemoglobin C Crystals Not Reportable Schistocytes Not Reportable Malaria parasites Not Reportable [place]queria Bodies Not Reportable Hem Pathologist Commnt No Sodium 137 Potassium 3.0 L Chloride 98.4 Carbon Dioxide 25 Anion Gap 17 BUN 6 L Creatinine 0.7 L Estimated GFR > 60 BUN/Creatinine Ratio 9 Glucose 116 H Calcium 9.1 Total Bilirubin 0.30 AST 13 ALT 13 Alkaline Phosphatase 50 Total Protein 6.7 Albumin 3.4 L Albumin/Globulin Ratio 1.0 Urine Color Urine Turbidity Urine pH Ur Specific Ault Urine Protein Urine Glucose (UA) Urine Ketones Urine Blood Urine Nitrite Urine Bilirubin Urine Urobilinogen Ur Leukocyte Esterase Urine WBC (Auto) Urine RBC (Auto) Urine Mucus Blood Type A POSITIVE Antibody Screen Positive Direct Antiglob Test Positive MARCOS (IgG-AHG) Positive MARCOS, Poly Interpret Positive MARCOS, Anti-C3 Negative Crossmatch See Detail 08/16/18 08/16/18 08/16/18 06:53 06:53 Unknown WBC 11.2 H RBC 2.26 L Hgb 5.3 L* Hct 16.5 L* MCV 73 L MCH 24 L MCHC 32 RDW 21.3 H Plt Count 301 Add Manual Diff Complete Total Counted 100 Seg Neutrophils % Corporate Compliance Director Seg Neuts % (Manual) 91.0 H Band Neutrophils % 0 Lymphocytes % (Manual) 9.0 L Reactive Lymphs % (Man) 0 Monocytes % (Manual) 0 Eosinophils % (Manual) 0 Basophils % (Manual) 0 Metamyelocytes % 0 Myelocytes % 0 Promyelocytes % 0 Blast Cells % 0 Nucleated RBC % Not Reportable Seg Neutrophils # Man 10.2 H Band Neutrophils # 0.0 Lymphocytes # (Manual) 1.0 L Abs React Lymphs (Man) 0.0 Monocytes # (Manual) 0.0 Eosinophils # (Manual) 0.0 Basophils # (Manual) 0.0 Metamyelocytes # 0.0 Myelocytes # 0.0 Promyelocytes # 0.0 Blast Cells # 0.0 WBC Morphology Not Reportable Hypersegmented Neuts Not Reportable Hyposegmented Neuts Not Reportable Hypogranular Neuts Not Reportable Smudge Cells Not Reportable Toxic Granulation Not Reportable Toxic Vacuolation Not Reportable Dohle Bodies Not Reportable Pelger-Huet Anomaly Not Reportable Lj Rods Not Reportable Platelet Estimate Consistent w auto Clumped Platelets Not Reportable Plt Clumps, EDTA Not Reportable Large Platelets Not Reportable Giant Platelets Not Reportable Platelet Satelliting Not Reportable Plt Morphology Comment Not Reportable RBC Morphology Not Reportable Dimorphic RBCs Not Reportable Polychromasia Not Reportable Hypochromasia 2+ Poikilocytosis Not Reportable Anisocytosis 1+ Microcytosis Not Reportable Macrocytosis Not Reportable Spherocytes Not Reportable Pappenheimer Bodies Not Reportable Sickle Cells Not Reportable Target Cells Not Reportable Tear Drop Cells Not Reportable Ovalocytes Not Reportable Stomatocytes Helmet Cells Not Reportable [place] Bodies Not Reportable [place] Rings Not Reportable [place] Cells Not Reportable Bite Cells Not Reportable Crenated Cell Not Reportable Elliptocytes Not Reportable Acanthocytes (Spur) Not Reportable Rouleaux Not Reportable Hemoglobin C Crystals Not Reportable Schistocytes Not Reportable Malaria parasites Not Reportable [place] Bodies Not Reportable Hem Pathologist Commnt No Sodium 139 Potassium 3.5 L Chloride 101.7 Carbon Dioxide 28 Anion Gap 13 BUN 6 L Creatinine 0.5 L Estimated GFR > 60 BUN/Creatinine Ratio 12 Glucose 118 H Calcium 8.5 Total Bilirubin AST ALT Alkaline Phosphatase Total Protein Albumin Albumin/Globulin Ratio Urine Color Yellow Urine Turbidity Cloudy Urine pH 6.0 Ur Specific Ault 1.028 Urine Protein 100 mg/dl Urine Glucose (UA) Neg Urine Ketones 20 Urine Blood Neg Urine Nitrite Neg Urine Bilirubin Neg Urine Urobilinogen < 2.0 Ur Leukocyte Esterase Neg Urine WBC (Auto) < 1.0 Urine RBC (Auto) < 1.0 Urine Mucus 3+ Blood Type Antibody Screen Direct Antiglob Test MARCOS (IgG-AHG) MARCOS, Poly Interpret MARCOS, Anti-C3 Crossmatch Assessment and Plan 1.Hematochezia 2.acute on chronic anemia 3.abdominal pain 4.H/o UC -afebrile -WBC 11.2 -H/H 5.3/16.5-transfusion PRBCs pending (patient with antibodies) -continue to monitor H/H and transfuse as needed -abd CT 07/28 showed mild circumferential thickening and fluid in the distal colon -last colonoscopy 06/11/18 showed moderate to severe colitis throughout entire colon -kajal findings c/w IBD/likely UC -etiology- likely UC flare -clinically, patient is stable. Reports some mild continued abd discomfort but N/V resolved. -no plan for repeat scope at this time -stool studies pending to r/o infection -CRP in am -start on empiric antibiotics -start on steroids -okay for trial of clear liquids -continue supportive care -will need maintenance therapy as outpatient -will follow <PALLAVI GUO - Last Filed: 08/16/18 23:19> Medications and Allergies Active Meds: Active Medications Acetaminophen (Tylenol) 650 mg PO Q4H PRN PRN Reason: Pain MILD(1-3)/Fever >100.5/JACOBSON Sodium Chloride (Nacl 0.9% 1000 Ml) 1,000 mls @ 150 mls/hr IV DIRECT [facility] Last Admin: 08/16/18 18:21 Dose: 150 mls/hr Documented by: Metronidazole (Flagyl 500 Mg/100 Ml) 500 mg in 100 mls @ 100 mls/hr IV Q8HR [facility]; Protocol Last Admin: 08/16/18 21:56 Dose: 100 mls/hr Documented by: Levofloxacin/Dextrose (Levaquin 500mg/100ml) 500 mg in 100 mls @ 100 mls/hr IV Q24HR [facility]; Protocol Last Admin: 08/16/18 11:47 Dose: 100 mls/hr Documented by: Morphine Sulfate (Morphine) 2 mg IV Q4H PRN PRN Reason: Pain, Moderate (4-6) Olanzapine (Zyprexa) 10 mg PO DAILY [facility] Last Admin: 08/16/18 10:36 Dose: 10 mg Documented by: Ondansetron HCl (Zofran) 4 mg IV Q8H PRN PRN Reason: Nausea And Vomiting Pantoprazole Sodium (Protonix) 40 mg PO QDAY [facility] Last Admin: 08/16/18 10:36 Dose: 40 mg Documented by: Potassium Chloride (K-Dur) 40 meq PO QDAY [facility] Last Admin: 08/16/18 10:36 Dose: 40 meq Documented by: Prednisone (Deltasone) 40 mg PO QDAY [facility] Sodium Chloride (Sodium Chloride Flush Syringe 10 Ml) 10 ml IV BID [facility] Last Admin: 08/16/18 21:57 Dose: 10 ml Documented by: Sodium Chloride (Sodium Chloride Flush Syringe 10 Ml) 10 ml IV PRN PRN PRN Reason: LINE FLUSH Exam - Constitutional Vital Signs: Temp Pulse Resp BP Pulse Ox 98.4 F 102 H 16 110/64 100 08/16/18 11:32 08/16/18 11:32 08/16/18 11:32 08/16/18 11:32 08/16/18 11:32 - Labs CBC & Chem 7: 08/16/18 06:53 08/16/18 06:53 Lab Results: Laboratory Results - last 24 hr 08/15/18 08/16/18 08/16/18 22:29 02:45 06:53 WBC 11.2 H RBC 2.26 L Hgb 5.3 L* Hct 16.5 L* MCV 73 L MCH 24 L MCHC 32 RDW 21.3 H Plt Count 301 Add Manual Diff Complete Complete Total Counted 100 100 Seg Neutrophils % Corporate Compliance Director Seg Neuts % (Manual) 73.0 H 91.0 H Band Neutrophils % 8.0 0 Lymphocytes % (Manual) 14.0 9.0 L Reactive Lymphs % (Man) 0 0 Monocytes % (Manual) 3.0 0 Eosinophils % (Manual) 2.0 0 Basophils % (Manual) 0 0 Metamyelocytes % 0 0 Myelocytes % 0 0 Promyelocytes % 0 0 Blast Cells % 0 0 Nucleated RBC % Not Reportable Not Reportable Seg Neutrophils # Man 6.7 10.2 H Band Neutrophils # 0.7 0.0 Lymphocytes # (Manual) 1.3 1.0 L Abs React Lymphs (Man) 0.0 0.0 Monocytes # (Manual) 0.3 0.0 Eosinophils # (Manual) 0.2 0.0 Basophils # (Manual) 0.0 0.0 Metamyelocytes # 0.0 0.0 Myelocytes # 0.0 0.0 Promyelocytes # 0.0 0.0 Blast Cells # 0.0 0.0 WBC Morphology Not Reportable Not Reportable Hypersegmented Neuts Not Reportable Not Reportable Hyposegmented Neuts Not Reportable Not Reportable Hypogranular Neuts Not Reportable Not Reportable Smudge Cells Not Reportable Not Reportable Toxic Granulation Not Reportable Not Reportable Toxic Vacuolation Not Reportable Not Reportable Dohle Bodies Not Reportable Not Reportable Pelger-Huet Anomaly Not Reportable Not Reportable Lj Rods Not Reportable Not Reportable Platelet Estimate Consistent w auto Consistent w auto Clumped Platelets Not Reportable Not Reportable Plt Clumps, EDTA Not Reportable Not Reportable Large Platelets Not Reportable Not Reportable Giant Platelets Not Reportable Not Reportable Platelet Satelliting Not Reportable Not Reportable Plt Morphology Comment Not Reportable Not Reportable RBC Morphology Not Reportable Not Reportable Dimorphic RBCs Not Reportable Not Reportable Polychromasia Few Not Reportable Hypochromasia 3+ 2+ Poikilocytosis Not Reportable Not Reportable Anisocytosis Not Reportable 1+ Microcytosis Not Reportable Not Reportable Macrocytosis Not Reportable Not Reportable Spherocytes Not Reportable Not Reportable Pappenheimer Bodies Not Reportable Not Reportable Sickle Cells Not Reportable Not Reportable Target Cells Not Reportable Not Reportable Tear Drop Cells Few Not Reportable Ovalocytes Not Reportable Not Reportable Stomatocytes Few Helmet Cells Not Reportable Not Reportable [place] Bodies Not Reportable Not Reportable [place] Rings Not Reportable Not Reportable Zari Cells Not Reportable Not Reportable Bite Cells Not Reportable Not Reportable Crenated Cell Not Reportable Not Reportable Elliptocytes Not Reportable Not Reportable Acanthocytes (Spur) Not Reportable Not Reportable Rouleaux Not Reportable Not Reportable Hemoglobin C Crystals Not Reportable Not Reportable Schistocytes Not Reportable Not Reportable Malaria parasites Not Reportable Not Reportable [place]qu[place] Bodies Not Reportable Not Reportable Hem Pathologist Commnt No No Sodium Potassium Chloride Carbon Dioxide Anion Gap BUN Creatinine Estimated GFR BUN/Creatinine Ratio Glucose Calcium Urine Color Urine Turbidity Urine pH Ur Specific Ault Urine Protein Urine Glucose (UA) Urine Ketones Urine Blood Urine Nitrite Urine Bilirubin Urine Urobilinogen Ur Leukocyte Esterase Urine WBC (Auto) Urine RBC (Auto) Urine Mucus Blood Type A POSITIVE Antibody Screen Positive Direct Antiglob Test Positive MARCOS (IgG-AHG) Positive MARCOS, Poly Interpret Positive MARCOS, Anti-C3 Negative Crossmatch See Detail 08/16/18 08/16/18 06:53 Unknown WBC RBC Hgb Hct MCV MCH MCHC RDW Plt Count Add Manual Diff Total Counted Seg Neutrophils % Seg Neuts % (Manual) Band Neutrophils % Lymphocytes % (Manual) Reactive Lymphs % (Man) Monocytes % (Manual) Eosinophils % (Manual) Basophils % (Manual) Metamyelocytes % Myelocytes % Promyelocytes % Blast Cells % Nucleated RBC % Seg Neutrophils # Man Band Neutrophils # Lymphocytes # (Manual) Abs React Lymphs (Man) Monocytes # (Manual) Eosinophils # (Manual) Basophils # (Manual) Metamyelocytes # Myelocytes # Promyelocytes # Blast Cells # WBC Morphology Hypersegmented Neuts Hyposegmented Neuts Hypogranular Neuts Smudge Cells Toxic Granulation Toxic Vacuolation Dohle Bodies Pelger-Huet Anomaly Lj Rods Platelet Estimate Clumped Platelets Plt Clumps, EDTA Large Platelets Giant Platelets Platelet Satelliting Plt Morphology Comment RBC Morphology Dimorphic RBCs Polychromasia Hypochromasia Poikilocytosis Anisocytosis Microcytosis Macrocytosis Spherocytes Pappenheimer Bodies Sickle Cells Target Cells Tear Drop Cells Ovalocytes Stomatocytes Helmet Cells [place] Bodies [place] Rings [place] Cells Bite Cells Crenated Cell Elliptocytes Acanthocytes (Spur) Rouleaux Hemoglobin C Crystals Schistocytes Malaria parasites Taqueria Bodies Hem Pathologist Commnt Sodium 139 Potassium 3.5 L Chloride 101.7 Carbon Dioxide 28 Anion Gap 13 BUN 6 L Creatinine 0.5 L Estimated GFR > 60 BUN/Creatinine Ratio 12 Glucose 118 H Calcium 8.5 Urine Color Yellow Urine Turbidity Cloudy Urine pH 6.0 Ur Specific Ault 1.028 Urine Protein 100 mg/dl Urine Glucose (UA) Neg Urine Ketones 20 Urine Blood Neg Urine Nitrite Neg Urine Bilirubin Neg Urine Urobilinogen < 2.0 Ur Leukocyte Esterase Neg Urine WBC (Auto) < 1.0 Urine RBC (Auto) < 1.0 Urine Mucus 3+ Blood Type Antibody Screen Direct Antiglob Test MARCOS (IgG-AHG) MARCOS, Poly Interpret MARCOS, Anti-C3 Crossmatch Assessment and Plan Patient seen and examined. I have reviewed the advanced practitioner's evaluation, assessment, and plan, and agree with them. I note the following additions: pleasant young male with pancolitis, likely UC, presenting with flare symptoms with abd pain, hematochezia, abd ttp. Plan steroids as above and as improves can be discharged with outpatient followup with need for intermodal dispatcher biologic therapy for control of his IBD
[2018-08-16] MEDS: LEVAQUIN 500MG/100ML 500 MG/100 ML BAG IV SCH (11:47)
[2018-08-16] MEDS: FLAGYL 500 MG/100 ML 500 MG/100 ML BAG IV SCH ×2 (14:00→21:56)
[2018-08-17] MEDS: NACL 0.9% 1000 ML 1,000 ML IV SCH ×3 (00:55→16:00)
[2018-08-17] MEDS: FLAGYL 500 MG/100 ML 500 MG/100 ML BAG IV SCH (05:47)
[2018-08-17 06:37] LABS: Basophils % (Auto) 0.4 % (0.0-1.8); Eosinophils # (Auto) 0.3 K/mm3 (0.0-0.4); Eosinophils % (Auto) 2.9 % (0.0-4.3); Lymphocytes # (Auto) 0.9 K/mm3 (1.2-5.4); Lymphocytes % (Auto) 9.9 % (13.4-35.0); Mean Corpuscular HGB Conc 31 % (32-34); Mean Corpuscular Volume 75 fl (84-94); Monocytes % (Auto) 10.5 % (0.0-7.3); Platelet Count 288 K/mm3 (140-440); Red Blood Count 1.87 M/mm3 (3.65-5.03)
[2018-08-17 06:47] LABS: BUN/Creatinine Ratio 7; Blood Urea Nitrogen 4 mg/dL (9-20); Calcium 8.2 mg/dL (8.4-10.2); Hemolysis Index 1
[2018-08-17 06:55] LABS: Red Cell Distribution Width 21.3 % (13.2-15.2)
[2018-08-17 06:56] LABS: Hemoglobin 4.4 gm/dl (11.8-15.2)
[2018-08-17] MEDS: LEVAQUIN 500MG/100ML 500 MG/100 ML BAG IV SCH (09:36)
[2018-08-17] MEDS: PROTONIX PO SCH (09:37)
[2018-08-17] MEDS: K-DUR PO SCH (09:37)
[2018-08-17] MEDS: SODIUM CHLORIDE FLUSH SYRINGE 10 ML IV SCH ×2 (09:37→23:20)
[2018-08-17] MEDS ORDERED: DELTASONE PO SCH (10:00)
--- NOTE | 2018-08-17 10:48 | Progress Note ---
Assessment and Plan Assessment and plan: Acute GI bleed hematochezia Hgb 4.4. For 3 units PRBC transfyusion then recheck Anemia due to acute blood loss Acute on chronic anemia Acute component due to acute GI bleed Ulcerative colitis GI Physician following Hypokalemia Replace iv C. diff colitis Continue flagyl Full code status History Interval history: Blood per rectum diarrhea Hospitalist Physical - Physical exam Narrative exam: Gen: Not in acute distress, lying in bed, malnourished HEENT: Normocephalic, atraumatic Neck: supple, no JVD Heart: S1 and S2 reg, no murmurs, rubs or gallop Lungs: Clear, no crackles, no wheeze Abd: soft, non tender, non distended, normal BS Ext: No edema, no clubbing, no cyanosis, Neuro: Awake,alert, oriented x 3, moves all ext, non focal Psych:Normal mood - Constitutional Vitals: Temp Pulse Resp BP Pulse Ox 98.7 F 85 18 105/55 100 08/17/18 04:56 08/17/18 04:56 08/17/18 04:56 08/17/18 04:56 08/17/18 04:56 General appearance: Present: no acute distress Results - Labs CBC & Chem 7: 08/17/18 05:24 08/17/18 05:24 Labs: Laboratory Last Values WBC 9.1 K/mm3 (4.5-11.0) 08/17/18 05:24 RBC 1.87 M/mm3 (3.65-5.03) L 08/17/18 05:24 Hgb 4.4 gm/dl (11.8-15.2) L* 08/17/18 05:24 Hct 14.0 % (35.5-45.6) L* 08/17/18 05:24 MCV 75 fl (84-94) L 08/17/18 05:24 MCH 24 pg (28-32) L 08/17/18 05:24 MCHC 31 % (32-34) L 08/17/18 05:24 RDW 21.3 % (13.2-15.2) H 08/17/18 05:24 Plt Count 288 K/mm3 (140-440) 08/17/18 05:24 Lymph % (Auto) 9.9 % (13.4-35.0) L 08/17/18 05:24 [place] % (Auto) 10.5 % (0.0-7.3) H 08/17/18 05:24 Eos % (Auto) 2.9 % (0.0-4.3) 08/17/18 05:24 Baso % (Auto) 0.4 % (0.0-1.8) 08/17/18 05:24 Lymph # 0.9 K/mm3 (1.2-5.4) L 08/17/18 05:24 [place] # 1.0 K/mm3 (0.0-0.8) H 08/17/18 05:24 Eos # 0.3 K/mm3 (0.0-0.4) 08/17/18 05:24 Baso # 0.0 K/mm3 (0.0-0.1) 08/17/18 05:24 Add Manual Diff Complete 08/16/18 06:53 Total Counted 100 08/16/18 06:53 Seg Neutrophils % 76.3 % (40.0-70.0) H 08/17/18 05:24 Seg Neuts % (Manual) 91.0 % (40.0-70.0) H 08/16/18 06:53 0 % 08/16/18 06:53 9.0 % (13.4-35.0) L 08/16/18 06:53 Reactive Lymphs % (Man) 0 % 08/16/18 06:53 0 % (0.0-7.3) 08/16/18 06:53 0 % (0.0-4.3) 08/16/18 06:53 0 % (0.0-1.8) 08/16/18 06:53 0 % 08/16/18 06:53 0 % 08/16/18 06:53 0 % 08/16/18 06:53 0 % 08/16/18 06:53 Nucleated RBC % Not Reportable 08/16/18 06:53 Seg Neutrophils # 7.0 K/mm3 (1.8-7.7) 08/17/18 05:24 Seg Neutrophils # Man 10.2 K/mm3 (1.8-7.7) H 08/16/18 06:53 Band Neutrophils # 0.0 K/mm3 08/16/18 06:53 1.0 K/mm3 (1.2-5.4) L 08/16/18 06:53 Abs React Lymphs (Man) 0.0 K/mm3 08/16/18 06:53 0.0 K/mm3 (0.0-0.8) 08/16/18 06:53 0.0 K/mm3 (0.0-0.4) 08/16/18 06:53 0.0 K/mm3 (0.0-0.1) 08/16/18 06:53 0.0 K/mm3 08/16/18 06:53 0.0 K/mm3 08/16/18 06:53 0.0 K/mm3 08/16/18 06:53 Blast Cells # 0.0 K/mm3 08/16/18 06:53 WBC Morphology Not Reportable 08/16/18 06:53 Hypersegmented Neuts Not Reportable 08/16/18 06:53 Hyposegmented Neuts Not Reportable 08/16/18 06:53 Hypogranular Neuts Not Reportable 08/16/18 06:53 Not Reportable 08/16/18 06:53 Not Reportable 08/16/18 06:53 Not Reportable 08/16/18 06:53 Not Reportable 08/16/18 06:53 Not Reportable 08/16/18 06:53 Not Reportable 08/16/18 06:53 Consistent w auto 08/16/18 06:53 Not Reportable 08/16/18 06:53 Plt Clumps, EDTA Not Reportable 08/16/18 06:53 Not Reportable 08/16/18 06:53 Not Reportable 08/16/18 06:53 Not Reportable 08/16/18 06:53 Plt Morphology Comment Not Reportable 08/16/18 06:53 RBC Morphology Not Reportable 08/16/18 06:53 Dimorphic RBCs Not Reportable 08/16/18 06:53 Not Reportable 08/16/18 06:53 2+ 08/16/18 06:53 Not Reportable 08/16/18 06:53 1+ 08/16/18 06:53 Not Reportable 08/16/18 06:53 Not Reportable 08/16/18 06:53 Not Reportable 08/16/18 06:53 Not Reportable 08/16/18 06:53 Not Reportable 08/16/18 06:53 Not Reportable 08/16/18 06:53 Not Reportable 08/16/18 06:53 Not Reportable 08/16/18 06:53 Few 08/15/18 22:29 Not Reportable 08/16/18 06:53 Not Reportable 08/16/18 06:53 Not Reportable 08/16/18 06:53 Not Reportable 08/16/18 06:53 Not Reportable 08/16/18 06:53 Not Reportable 08/16/18 06:53 Not Reportable 08/16/18 06:53 Acanthocytes (Spur) Not Reportable 08/16/18 06:53 Rouleaux Not Reportable 08/16/18 06:53 Not Reportable 08/16/18 06:53 Not Reportable 08/16/18 06:53 Not Reportable 08/16/18 06:53 Not Reportable 08/16/18 06:53 Hem Pathologist Commnt No 08/16/18 06:53 Sodium 141 mmol/L (137-145) 08/17/18 05:24 Potassium 3.3 mmol/L (3.6-5.0) L 08/17/18 05:24 Chloride 108.3 mmol/L (98-107) H 08/17/18 05:24 Carbon Dioxide 26 mmol/L (22-30) 08/17/18 05:24 10 mmol/L 08/17/18 05:24 BUN 4 mg/dL (9-20) L 08/17/18 05:24 0.6 mg/dL (0.8-1.5) L 08/17/18 05:24 Estimated GFR > 60 ml/min 08/17/18 05:24 7 % 08/17/18 05:24 Glucose 87 mg/dL (75-100) 08/17/18 05:24 Calcium 8.2 mg/dL (8.4-10.2) L 08/17/18 05:24 0.30 mg/dL (0.1-1.2) 08/15/18 22:29 AST 13 units/L (5-40) 08/15/18 22:29 ALT 13 units/L (7-56) 08/15/18 22:29 50 units/L (35-129) 08/15/18 22:29 6.7 g/dL (6.3-8.2) 08/15/18 22:29 3.4 g/dL (3.9-5) L 08/15/18 22:29 1.0 % 08/15/18 22:29 Yellow (Yellow) 08/16/18 Unknown Cloudy (Clear) 08/16/18 Unknown 6.0 (5.0-7.0) 08/16/18 Unknown Ur Specific [place] 1.028 (1.003-1.030) 08/16/18 Unknown 100 mg/dl mg/dL (Negative) 08/16/18 Unknown Neg mg/dL (Negative) 08/16/18 Unknown 20 mg/dL (Negative) 08/16/18 Unknown Neg (Negative) 08/16/18 Unknown Neg (Negative) 08/16/18 Unknown Neg (Negative) 08/16/18 Unknown < 2.0 mg/dL (<2.0) 08/16/18 Unknown Ur Leukocyte Esterase Neg (Negative) 08/16/18 Unknown < 1.0 /HPF (0.0-6.0) 08/16/18 Unknown < 1.0 /HPF (0.0-6.0) 08/16/18 Unknown 3+ /HPF 08/16/18 Unknown C. difficile Tox (PCR) Positive (Negative) 08/16/18 23:00 Blood Type A POSITIVE 08/16/18 02:45 Antibody Screen Positive 08/16/18 02:45 Direct Antiglob Test Positive 08/16/18 02:45 MARCOS (IgG-AHG) Positive 08/16/18 02:45 MARCOS, Poly Interpret Positive 08/16/18 02:45 MARCOS, Anti-C3 Negative 08/16/18 02:45 Crossmatch See Detail 08/16/18 02:45 Active Medications - Current Medications Current Medications: Generic Name Dose Route Start Last Admin Trade Name Freq PRN Reason Stop Dose Admin Acetaminophen 650 mg 08/16/18 02:20 Tylenol PO Q4H PRN Pain MILD(1-3)/Fever >100.5/JACOBSON Sodium Chloride 1,000 mls @ 150 mls/hr 08/16/18 07:00 08/17/18 08:44 Nacl 0.9% 1000 Ml IV 150 mls/hr DIRECT JUAN Administration Metronidazole 500 mg in 100 mls @ 100 mls/hr 08/16/18 14:00 08/17/18 05:47 Flagyl 500 Mg/100 Ml IV 100 mls/hr Q8HR JUAN Administration Protocol Levofloxacin/Dextrose 500 mg in 100 mls @ 100 mls/hr 08/16/18 12:00 08/17/18 09:36 Levaquin 500mg/100ml IV 100 mls/hr Q24HR JUAN Administration Protocol Morphine Sulfate 2 mg 08/16/18 06:21 Morphine IV Q4H PRN Pain, Moderate (4-6) Olanzapine 10 mg 08/16/18 10:00 08/17/18 09:37 Zyprexa PO 10 mg DAILY JUAN Administration Ondansetron HCl 4 mg 08/16/18 02:20 Zofran IV Q8H PRN Nausea And Vomiting Pantoprazole Sodium 40 mg 08/16/18 10:00 08/17/18 09:37 Protonix PO 40 mg QDAY JUAN Administration Potassium Chloride 40 meq 08/16/18 10:00 08/17/18 09:37 K-Dur PO 40 meq QDAY JUAN Administration Prednisone 40 mg 08/17/18 10:00 08/17/18 09:37 Deltasone PO 40 mg QDAY JUAN Administration Sodium Chloride 10 ml 08/16/18 03:00 08/17/18 09:37 Sodium Chloride Flush Syringe 10 Ml IV 10 ml BID JUAN Administration Sodium Chloride 10 ml 08/16/18 02:20 Sodium Chloride Flush Syringe 10 Ml IV PRN PRN LINE FLUSH Nutrition/Malnutrition Assess - Dietary Evaluation Nutrition/Malnutrition Findings: Nutrition Notes Start: 08/16/18 16:47 Freq: Status: Active Protocol: Document 08/16/18 16:47 RM (Rec: 08/16/18 16:55 RM [id number]) Nutrition Notes Need for Assessment generated from: MST Initial or Follow up Assessment Other Pertinent Diagnosis Bipolar, Schizophrenia, Abdominal pain, Diarrhea X 2 weeks, N/V, GI bleed Current Diet Clear liquid Labs/Tests Reviewed Pertinent Medications Solu-Medrol Height 5 ft 9 in Weight 50.2 kg Usual Body Weight 59.09 kg [place] Body Weight (kg) 72.72 BMI 16.3 Weight change and time frame 15% wt loss X 2-4 weeks Subjective/Other Information Screened for malnutrition. Pt stated that [employer] his appetite was poor and that he ate 2-3 meals daily X 3-4 days . Pt stated that his appetite is good here and that he drank most of his lunch. Denied N/V today. Stated UBW was 130 lbs 2-4 weeks ago. No temporal or orbital wasting . Burn Absent Trauma Absent #1 Nutrition Diagnosis Malnutrition Etiology GI bleed As Evidenced by Signs and Symptoms 15% wt loss X 2-4 weeks, BMI 16.3 Is patient on ventilator? No Is Patient Ambulatory and/or Out of Bed No REE-([facility]-confined to bed) 1804.164 Kcal/Kg value to use for calculation 46 Approximate Energy Requirements Using 2309 kcal/Kg Calculation Used for Recommendations Kcal/kg Additional Notes Protein Needs: 60-75g (1.2-1. 5g/kg) Fluid Needs: 1 ml/kcal Nutrition Intervention Change Diet Order: Advance diet when medically able Add Supplement/Snack (indicate name/kcal Ensure Clear apple 1 daily /protein ) Provides kCal: 240 Provides Protein (gm) 8 Goal #1 Diet advancement Anticipated Discharge Needs: Unable to determine at this time Follow-Up By: 08/18/18 Additional Comments Follow for diet advancement, PO and ONS intakes
--- NOTE | 2018-08-17 11:06 | Gastroenterology Progress Note ---
<MALIK RODRIGUEZ - Last Filed: 08/17/18 11:06> Assessment and Plan 1.Hematochezia 2.acute on chronic anemia 3.abdominal pain 4.H/o UC -afebrile -WBC 9.1-trended down -H/H 4.4/14.0-trending down (transfusion PRBCs still pending 2/2 antibodies) -continue to monitor H/H and transfuse as needed -abd CT 07/28 showed mild circumferential thickening and fluid in the distal colon -last colonoscopy 06/11/18 showed moderate to severe colitis throughout entire colon -kajal findings c/w IBD/likely UC -etiology- likely UC flare -clinically, patient is HD stable. Reports feeling better with abd pain improved and no N/V or active signs of bleeding overnight or this am. Tolerating clears. -no plan for repeat scope at this time -C-diff PCR positive -d/c cipro/flagyl and start on vancomycin 125mg PO Q6H x 10 days -decrease dose of prednisone to 20mg daily -okay to start on GI soft diet -continue supportive care -Patient will need maintenance therapy as outpatient -will follow Subjective Date of service: 08/17/18 Principal diagnosis: GI bleed Interval history: Patient resting in bed this am w/o acute distress. Reports feeling better with abd pain improved and no N/v or active signs of bleeding overnight or this am. Tolerating clears. Objective - Constitutional Vitals: Temp Pulse Resp BP Pulse Ox 98.7 F 85 18 105/55 100 08/17/18 04:56 08/17/18 04:56 08/17/18 04:56 08/17/18 04:56 08/17/18 04:56 General appearance: no acute distress, other (thin appearing) - Respiratory Respiratory effort: normal - Cardiovascular Rhythm: regular - Gastrointestinal General gastrointestinal: Present: soft, non-tender, non-distended, normal bowel sounds - Neurologic Neurological: alert and oriented x3 - Labs CBC & Chem 7: 08/17/18 05:24 08/17/18 05:24 Labs: Laboratory Results - last 24 hr 08/16/18 08/16/18 08/17/18 02:45 23:00 05:24 WBC 9.1 RBC 1.87 L Hgb 4.4 L* Hct 14.0 L* MCV 75 L MCH 24 L MCHC 31 L RDW 21.3 H Plt Count 288 Lymph % (Auto) 9.9 L [place] % (Auto) 10.5 H Eos % (Auto) 2.9 Baso % (Auto) 0.4 Lymph # 0.9 L [place] # 1.0 H Eos # 0.3 Baso # 0.0 Seg Neutrophils % 76.3 H Seg Neutrophils # 7.0 Sodium Potassium Chloride Carbon Dioxide Anion Gap BUN Creatinine Estimated GFR BUN/Creatinine Ratio Glucose Calcium C. difficile Tox (PCR) Positive Blood Type A POSITIVE Antibody Screen Positive Direct Antiglob Test Positive MARCOS (IgG-AHG) Positive MARCOS, Poly Interpret Positive MARCOS, Anti-C3 Negative Crossmatch See Detail 08/17/18 05:24 WBC RBC Hgb Hct MCV MCH MCHC RDW Plt Count Lymph % (Auto) [place] % (Auto) Eos % (Auto) Baso % (Auto) Lymph # [place] # Eos # Baso # Seg Neutrophils % Seg Neutrophils # Sodium 141 Potassium 3.3 L Chloride 108.3 H Carbon Dioxide 26 Anion Gap 10 BUN 4 L Creatinine 0.6 L Estimated GFR > 60 BUN/Creatinine Ratio 7 Glucose 87 Calcium 8.2 L C. difficile Tox (PCR) Blood Type Antibody Screen Direct Antiglob Test MARCOS (IgG-AHG) MARCOS, Poly Interpret MARCOS, Anti-C3 Crossmatch <PALLAVI GUO - Last Filed: 08/18/18 00:00> Assessment and Plan Patient seen and examined. Advanced practitioner's assessment and plan evaluated and I agree with the plan with the following additions: still awaiting blood transfusion, starting PO Vanco for Cdiff, continue steroids but at reduced dose given infection Objective - Constitutional Vitals: Temp Pulse Resp BP Pulse Ox 98.2 F 106 H 22 110/62 99 08/17/18 22:55 08/17/18 22:55 08/17/18 22:55 08/17/18 22:55 08/17/18 22:55 - Labs CBC & Chem 7: 08/17/18 05:24 08/17/18 05:24 Labs: Laboratory Results - last 24 hr 08/16/18 08/16/18 08/17/18 02:45 23:00 05:24 WBC 9.1 RBC 1.87 L Hgb 4.4 L* Hct 14.0 L* MCV 75 L MCH 24 L MCHC 31 L RDW 21.3 H Plt Count 288 Lymph % (Auto) 9.9 L [place] % (Auto) 10.5 H Eos % (Auto) 2.9 Baso % (Auto) 0.4 Lymph # 0.9 L [place] # 1.0 H Eos # 0.3 Baso # 0.0 Seg Neutrophils % 76.3 H Seg Neutrophils # 7.0 Sodium Potassium Chloride Carbon Dioxide Anion Gap BUN Creatinine Estimated GFR BUN/Creatinine Ratio Glucose Calcium C. difficile Tox (PCR) Positive Blood Type A POSITIVE Antibody Screen Positive Antibody Identification Anti-e Antibody ID ([place]) Anti-e Direct Antiglob Test Positive MARCOS (IgG-AHG) Positive MARCOS, Poly Interpret Positive MARCOS, Anti-C3 Negative Crossmatch See Detail 08/17/18 05:24 WBC RBC Hgb Hct MCV MCH MCHC RDW Plt Count Lymph % (Auto) [place] % (Auto) Eos % (Auto) Baso % (Auto) Lymph # [place] # Eos # Baso # Seg Neutrophils % Seg Neutrophils # Sodium 141 Potassium 3.3 L Chloride 108.3 H Carbon Dioxide 26 Anion Gap 10 BUN 4 L Creatinine 0.6 L Estimated GFR > 60 BUN/Creatinine Ratio 7 Glucose 87 Calcium 8.2 L C. difficile Tox (PCR) Blood Type Antibody Screen Antibody Identification Antibody ID (Elution) Direct Antiglob Test MARCOS (IgG-AHG) MARCOS, Poly Interpret MARCOS, Anti-C3 Crossmatch
[2018-08-17] MEDS: VANCOMYCIN PO PO SCH ×3 (13:31→22:30)
[2018-08-18] MEDS: VANCOMYCIN PO PO SCH ×4 (05:12→23:54)
[2018-08-18 09:08] LABS: Hematocrit 27.5 % (35.5-45.6); Hemoglobin 9.1 gm/dl (11.8-15.2); Mean Corpuscular HGB Conc 33 % (32-34); Mean Corpuscular Volume 82 fl (84-94); Platelet Count 242 K/mm3 (140-440); Red Blood Count 3.36 M/mm3 (3.65-5.03)
[2018-08-18 09:11] LABS: Red Cell Distribution Width 20.6 % (13.2-15.2)
[2018-08-18 09:30] LABS: BUN/Creatinine Ratio 7; Blood Urea Nitrogen 4 mg/dL (9-20); Calcium 8.2 mg/dL (8.4-10.2); Hemolysis Index 3
[2018-08-18] MEDS: NACL 0.9% 1000 ML 1,000 ML IV SCH ×2 (10:56→17:58)
[2018-08-18] MEDS: K-DUR PO SCH (10:57)
[2018-08-18] MEDS: PROTONIX PO SCH (10:58)
[2018-08-18] MEDS: SODIUM CHLORIDE FLUSH SYRINGE 10 ML IV SCH ×2 (10:58→23:56)
[2018-08-18] MEDS: DELTASONE PO SCH (10:58)
--- NOTE | 2018-08-18 12:20 | Progress Note ---
Assessment and Plan Assessment and plan: Acute GI bleed hematochezia Hgb 9.1 today after 3 units PRBC for hemoglobin 4.4 Anemia due to acute blood loss s/p 3 Units PRBC Acute on chronic anemia Acute component due to acute GI bleed Ulcerative colitis GI Physician following Hypokalemia Replace iv C. diff colitis Continue flagyl Full code status History Interval history: Blood per rectum diarrhea Hospitalist Physical - Physical exam Narrative exam: Gen: Not in acute distress, lying in bed, malnourished HEENT: Normocephalic, atraumatic Neck: supple, no JVD Heart: S1 and S2 reg, no murmurs, rubs or gallop Lungs: Clear, no crackles, no wheeze Abd: soft, non tender, non distended, normal BS Ext: No edema, no clubbing, no cyanosis, Neuro: Awake,alert, oriented x 3, moves all ext, non focal Psych:Normal mood - Constitutional Vitals: Temp Pulse Resp BP Pulse Ox 98.4 F 73 18 119/73 99 08/18/18 06:00 08/18/18 06:00 08/18/18 06:00 08/18/18 06:00 08/18/18 06:00 General appearance: Present: no acute distress Results - Labs CBC & Chem 7: 08/18/18 08:21 08/18/18 08:21 Labs: Laboratory Last Values WBC 9.4 K/mm3 (4.5-11.0) 08/18/18 08:21 RBC 3.36 M/mm3 (3.65-5.03) L 08/18/18 08:21 Hgb 9.1 gm/dl (11.8-15.2) L D 08/18/18 08:21 Hct 27.5 % (35.5-45.6) L D 08/18/18 08:21 MCV 82 fl (84-94) L 08/18/18 08:21 MCH 27 pg (28-32) L 08/18/18 08:21 MCHC 33 % (32-34) 08/18/18 08:21 RDW 20.6 % (13.2-15.2) H 08/18/18 08:21 Plt Count 242 K/mm3 (140-440) 08/18/18 08:21 Lymph % (Auto) 9.9 % (13.4-35.0) L 08/17/18 05:24 [place] % (Auto) 10.5 % (0.0-7.3) H 08/17/18 05:24 Eos % (Auto) 2.9 % (0.0-4.3) 08/17/18 05:24 Baso % (Auto) 0.4 % (0.0-1.8) 08/17/18 05:24 Lymph # 0.9 K/mm3 (1.2-5.4) L 08/17/18 05:24 [place] # 1.0 K/mm3 (0.0-0.8) H 08/17/18 05:24 Eos # 0.3 K/mm3 (0.0-0.4) 08/17/18 05:24 Baso # 0.0 K/mm3 (0.0-0.1) 08/17/18 05:24 Add Manual Diff Complete 08/16/18 06:53 Total Counted 100 08/16/18 06:53 Seg Neutrophils % 76.3 % (40.0-70.0) H 08/17/18 05:24 Seg Neuts % (Manual) 91.0 % (40.0-70.0) H 08/16/18 06:53 0 % 08/16/18 06:53 9.0 % (13.4-35.0) L 08/16/18 06:53 Reactive Lymphs % (Man) 0 % 08/16/18 06:53 0 % (0.0-7.3) 08/16/18 06:53 0 % (0.0-4.3) 08/16/18 06:53 0 % (0.0-1.8) 08/16/18 06:53 0 % 08/16/18 06:53 0 % 08/16/18 06:53 0 % 08/16/18 06:53 0 % 08/16/18 06:53 Nucleated RBC % Not Reportable 08/16/18 06:53 Seg Neutrophils # 7.0 K/mm3 (1.8-7.7) 08/17/18 05:24 Seg Neutrophils # Man 10.2 K/mm3 (1.8-7.7) H 08/16/18 06:53 Band Neutrophils # 0.0 K/mm3 08/16/18 06:53 1.0 K/mm3 (1.2-5.4) L 08/16/18 06:53 Abs React Lymphs (Man) 0.0 K/mm3 08/16/18 06:53 0.0 K/mm3 (0.0-0.8) 08/16/18 06:53 0.0 K/mm3 (0.0-0.4) 08/16/18 06:53 0.0 K/mm3 (0.0-0.1) 08/16/18 06:53 0.0 K/mm3 08/16/18 06:53 0.0 K/mm3 08/16/18 06:53 0.0 K/mm3 08/16/18 06:53 Blast Cells # 0.0 K/mm3 08/16/18 06:53 WBC Morphology Not Reportable 08/16/18 06:53 Hypersegmented Neuts Not Reportable 08/16/18 06:53 Hyposegmented Neuts Not Reportable 08/16/18 06:53 Hypogranular Neuts Not Reportable 08/16/18 06:53 Not Reportable 08/16/18 06:53 Not Reportable 08/16/18 06:53 Not Reportable 08/16/18 06:53 Not Reportable 08/16/18 06:53 Not Reportable 08/16/18 06:53 Not Reportable 08/16/18 06:53 Consistent w auto 08/16/18 06:53 Not Reportable 08/16/18 06:53 Plt Clumps, EDTA Not Reportable 08/16/18 06:53 Not Reportable 08/16/18 06:53 Not Reportable 08/16/18 06:53 Not Reportable 08/16/18 06:53 Plt Morphology Comment Not Reportable 08/16/18 06:53 RBC Morphology Not Reportable 08/16/18 06:53 Dimorphic RBCs Not Reportable 08/16/18 06:53 Not Reportable 08/16/18 06:53 2+ 08/16/18 06:53 Not Reportable 08/16/18 06:53 1+ 08/16/18 06:53 Not Reportable 08/16/18 06:53 Not Reportable 08/16/18 06:53 Not Reportable 08/16/18 06:53 Not Reportable 08/16/18 06:53 Not Reportable 08/16/18 06:53 Not Reportable 08/16/18 06:53 Not Reportable 08/16/18 06:53 Not Reportable 08/16/18 06:53 Few 08/15/18 22:29 Not Reportable 08/16/18 06:53 Not Reportable 08/16/18 06:53 Not Reportable 08/16/18 06:53 Not Reportable 08/16/18 06:53 Not Reportable 08/16/18 06:53 Not Reportable 08/16/18 06:53 Not Reportable 08/16/18 06:53 Acanthocytes (Spur) Not Reportable 08/16/18 06:53 Rouleaux Not Reportable 08/16/18 06:53 Not Reportable 08/16/18 06:53 Not Reportable 08/16/18 06:53 Not Reportable 08/16/18 06:53 Not Reportable 08/16/18 06:53 Hem Pathologist Commnt No 08/16/18 06:53 Sodium 140 mmol/L (137-145) 08/18/18 08:21 Potassium 3.6 mmol/L (3.6-5.0) 08/18/18 08:21 Chloride 105.0 mmol/L (98-107) 08/18/18 08:21 Carbon Dioxide 26 mmol/L (22-30) 08/18/18 08:21 13 mmol/L 08/18/18 08:21 BUN 4 mg/dL (9-20) L 08/18/18 08:21 0.6 mg/dL (0.8-1.5) L 08/18/18 08:21 Estimated GFR > 60 ml/min 08/18/18 08:21 7 % 08/18/18 08:21 Glucose 84 mg/dL (75-100) 08/18/18 08:21 Calcium 8.2 mg/dL (8.4-10.2) L 08/18/18 08:21 0.30 mg/dL (0.1-1.2) 08/15/18 22:29 AST 13 units/L (5-40) 08/15/18 22:29 ALT 13 units/L (7-56) 08/15/18 22:29 50 units/L (35-129) 08/15/18 22:29 6.7 g/dL (6.3-8.2) 08/15/18 22:29 3.4 g/dL (3.9-5) L 08/15/18 22:29 1.0 % 08/15/18 22:29 Yellow (Yellow) 08/16/18 Unknown Cloudy (Clear) 08/16/18 Unknown 6.0 (5.0-7.0) 08/16/18 Unknown Ur Specific [place] 1.028 (1.003-1.030) 08/16/18 Unknown 100 mg/dl mg/dL (Negative) 08/16/18 Unknown Neg mg/dL (Negative) 08/16/18 Unknown 20 mg/dL (Negative) 08/16/18 Unknown Neg (Negative) 08/16/18 Unknown Neg (Negative) 08/16/18 Unknown Neg (Negative) 08/16/18 Unknown < 2.0 mg/dL (<2.0) 08/16/18 Unknown Ur Leukocyte Esterase Neg (Negative) 08/16/18 Unknown < 1.0 /HPF (0.0-6.0) 08/16/18 Unknown < 1.0 /HPF (0.0-6.0) 08/16/18 Unknown 3+ /HPF 08/16/18 Unknown C. difficile Tox (PCR) Positive (Negative) 08/16/18 23:00 Blood Type A POSITIVE 08/16/18 02:45 Antibody Screen Positive 08/16/18 02:45 Antibody Identification Anti-e 08/16/18 02:45 Antibody ID (Elution) Anti-e 08/16/18 02:45 Direct Antiglob Test Positive 08/16/18 02:45 MARCOS (IgG-AHG) Positive 08/16/18 02:45 MARCOS, Poly Interpret Positive 08/16/18 02:45 MARCOS, Anti-C3 Negative 08/16/18 02:45 Crossmatch See Detail 08/16/18 02:45 Active Medications - Current Medications Current Medications: Generic Name Dose Route Start Last Admin Trade Name Freq PRN Reason Stop Dose Admin Acetaminophen 650 mg 08/16/18 02:20 08/17/18 21:32 Tylenol PO 650 mg Q4H PRN Administration Pain MILD(1-3)/Fever >100.5/JACOBSON Sodium Chloride 1,000 mls @ 150 mls/hr 08/16/18 07:00 08/18/18 10:56 Nacl 0.9% 1000 Ml IV 150 mls/hr DIRECT JUAN Administration Morphine Sulfate 2 mg 08/16/18 06:21 Morphine IV Q4H PRN Pain, Moderate (4-6) Olanzapine 10 mg 08/16/18 10:00 08/18/18 10:58 Zyprexa PO 10 mg DAILY JUAN Administration Ondansetron HCl 4 mg 08/16/18 02:20 Zofran IV Q8H PRN Nausea And Vomiting Pantoprazole Sodium 40 mg 08/16/18 10:00 08/18/18 10:58 Protonix PO 40 mg QDAY JUAN Administration Potassium Chloride 40 meq 08/16/18 10:00 08/18/18 10:57 K-Dur PO 40 meq QDAY JUAN Administration Prednisone 20 mg 08/18/18 10:00 08/18/18 10:58 Deltasone PO 20 mg QDAY JUAN Administration Sodium Chloride 10 ml 08/16/18 03:00 08/18/18 10:58 Sodium Chloride Flush Syringe 10 Ml IV 10 ml BID JUAN Administration Sodium Chloride 10 ml 08/16/18 02:20 Sodium Chloride Flush Syringe 10 Ml IV PRN PRN LINE FLUSH Vancomycin HCl 125 mg 08/17/18 12:00 08/18/18 05:12 Vancomycin Po PO 08/27/18 06:01 125 mg Q6HR JUAN Administration Nutrition/Malnutrition Assess - Dietary Evaluation Nutrition/Malnutrition Findings: Nutrition Notes Start: 08/16/18 16:47 Freq: Status: Active Protocol: Document 08/17/18 15:56 RM (Rec: 08/17/18 15:57 RM [id number]) Nutrition Notes Initial or Follow up Brief Note Height 5 ft 9 in Weight 50.2 kg [place] Body Weight (kg) 72.72 BMI 16.3 Subjective/Other Information Screened for low BMI. Pt does not have BMI of 0.1. Corrected in record using previous wt and ht. Nutrition Intervention Follow-Up By: 08/18/18 Additional Comments Follow for diet advancement, PO and ONS intakes
--- NOTE | 2018-08-18 13:27 | Gastroenterology Progress Note ---
<MALIK RODRIGUEZ - Last Filed: 08/18/18 13:28> Assessment and Plan 1.Hematochezia 2.acute on chronic anemia 3.abdominal pain 4.H/o UC -afebrile -WBC 9.1-trended down -H/H 9.1/27.5 s/p blood transfusion -continue to monitor H/H and transfuse as needed -abd CT 07/28 showed mild circumferential thickening and fluid in the distal colon -last colonoscopy 06/11/18 showed moderate to severe colitis throughout entire colon -kajal findings c/w IBD/likely UC -etiology- likely UC flare -clinically, patient is stable. Reports BM x 1 this am with bloody stool. Denies abd pain or N/V. Tolerating diet. -no plan for repeat scope at this time -C-diff PCR positive- continue vancomycin 125mg PO Q6H x 10 days -continue prednisone at reduced dose (20mg daily) given infection -continue supportive care -patient will need maintenance therapy as outpatient-importance of compliance with medications and f/u discussed with patient with understanding voiced -if H/H remains stable (will order repeat this afternoon), patient is okay to be d/c per GI standpoint on current medications (vanco/prednisone) with f/u in clinic in 1-2 weeks for further management (f/u appt already scheduled for 08/26)- would recommend patient not be discharged until he has access to medications needed Subjective Date of service: 08/18/18 Principal diagnosis: GI bleed Interval history: Patient resting in bed w/o acute distress. Denies abd pain or N/V. Reports BM x 1 this am with bloody stool. Tolerating diet. Objective - Constitutional Vitals: Temp Pulse Resp BP Pulse Ox 98.4 F 73 18 119/73 99 08/18/18 06:00 08/18/18 06:00 08/18/18 06:00 08/18/18 06:00 08/18/18 06:00 General appearance: no acute distress, other (thin appearing) - EENT Eyes: PERRL, EOM intact ENT: hearing intact, poor dentition - Respiratory Respiratory effort: normal Respiratory: bilateral: CTA - Cardiovascular Rhythm: regular - Gastrointestinal General gastrointestinal: Present: soft, non-tender, non-distended, normal bowel sounds - Neurologic Neurological: alert and oriented x3 - Labs CBC & Chem 7: 08/18/18 08:21 08/18/18 08:21 Labs: Laboratory Results - last 24 hr 08/16/18 08/18/18 08/18/18 02:45 08:21 08:21 WBC 9.4 RBC 3.36 L Hgb 9.1 L D Hct 27.5 L D MCV 82 L MCH 27 L MCHC 33 RDW 20.6 H Plt Count 242 Sodium 140 Potassium 3.6 Chloride 105.0 Carbon Dioxide 26 Anion Gap 13 BUN 4 L Creatinine 0.6 L Estimated GFR > 60 BUN/Creatinine Ratio 7 Glucose 84 Calcium 8.2 L Blood Type A POSITIVE Antibody Screen Positive Antibody Identification Anti-e Antibody ID (Elution) Anti-e Direct Antiglob Test Positive MARCOS (IgG-AHG) Positive MARCOS, Poly Interpret Positive MARCOS, Anti-C3 Negative Crossmatch See Detail <PALLAVI GUO - Last Filed: 08/18/18 23:09> Assessment and Plan Patient seen and examined. I agree with the advanced practitioner's assessment and plan, with the following additions: patient is feeling MUCH better after his blood transfusion, though still with loose stools with blood in them. complete course of PO vanco and continue predn isone 20mg PO daily (continuing Pred due to his known severe UC which is not controlled) and patient should go home on florastor. He has a follow up appointment with our office shortly for shelter management and taper of the steroids. Objective - Constitutional Vitals: Temp Pulse Resp BP Pulse Ox 98.4 F 88 18 119/75 99 08/18/18 17:43 08/18/18 17:43 08/18/18 17:43 08/18/18 17:43 08/18/18 17:43 - Labs CBC & Chem 7: 08/18/18 14:19 08/18/18 08:21 Labs: Laboratory Results - last 24 hr 08/16/18 08/18/18 08/18/18 02:45 08:21 08:21 WBC 9.4 RBC 3.36 L Hgb 9.1 L D Hct 27.5 L D MCV 82 L MCH 27 L MCHC 33 RDW 20.6 H Plt Count 242 Sodium 140 Potassium 3.6 Chloride 105.0 Carbon Dioxide 26 Anion Gap 13 BUN 4 L Creatinine 0.6 L Estimated GFR > 60 BUN/Creatinine Ratio 7 Glucose 84 Calcium 8.2 L Blood Type A POSITIVE Antibody Screen Positive Antibody Identification Anti-e Antibody ID (Elution) Anti-e Direct Antiglob Test Positive MARCOS (IgG-AHG) Positive MARCOS, Poly Interpret Positive MARCOS, Anti-C3 Negative Crossmatch See Detail 08/18/18 14:19 WBC RBC Hgb 9.2 L Hct 28.1 L MCV MCH MCHC RDW Plt Count Sodium Potassium Chloride Carbon Dioxide Anion Gap BUN Creatinine Estimated GFR BUN/Creatinine Ratio Glucose Calcium Blood Type Antibody Screen Antibody Identification Antibody ID (Elution) Direct Antiglob Test MARCOS (IgG-AHG) MARCOS, Poly Interpret MARCOS, Anti-C3 Crossmatch
[2018-08-18 14:58] LABS: Hematocrit 28.1 % (35.5-45.6); Hemoglobin 9.2 gm/dl (11.8-15.2)
[2018-08-19] MEDS: NACL 0.9% 1000 ML 1,000 ML IV SCH (06:34)
[2018-08-19] MEDS: VANCOMYCIN PO PO SCH ×2 (06:34→11:36)
[2018-08-19 07:11] LABS: Hematocrit 27.5 % (35.5-45.6); Hemoglobin 8.9 gm/dl (11.8-15.2)
--- NOTE | 2018-08-19 10:21 | Gastroenterology Progress Note ---
<MALIK RODRIGUEZ - Last Filed: 08/19/18 10:18> Assessment and Plan 1.Hematochezia 2.acute on chronic anemia 3.abdominal pain 4.H/o UC -afebrile -WBC 8.9/27.5-stable -H/H 9.1/27.5 s/p blood transfusion -continue to monitor H/H and transfuse as needed -abd CT 07/28 showed mild circumferential thickening and fluid in the distal colon -last colonoscopy 06/11/18 showed moderate to severe colitis throughout entire colon -kajal findings c/w IBD/likely UC -etiology- likely UC flare -clinically, patient is stable. Diarrhea with bloody stool improved. Denies abd pain or N/V. Tolerating diet. -no plan for repeat scope at this time -C-diff PCR positive- continue vancomycin 125mg PO Q6H x total of 10 days -continue prednisone at reduced dose (20mg daily) given infection -continue supportive care -patient will need maintenance therapy as outpatient-importance of compliance with medications and f/u discussed with patient with understanding voiced -patient is okay to be d/c per GI standpoint on current medications (vanco/prednisone) with f/u in clinic in 1-2 weeks for further management (f/u appt already scheduled for 08/26)- would recommend patient not be discharged until he has access to medications needed -will sign off, please call if needed Subjective Date of service: 08/19/18 Principal diagnosis: GI bleed Interval history: No acute distress. Patient reports bloody diarrhea is improved with BM x 1 this am with soft stool and only scant amount of mixed blood. Denies abd pain or N/V. Tolerating diet. Objective - Constitutional Vitals: Temp Pulse Resp BP Pulse Ox 97.8 F 65 20 139/85 100 08/19/18 05:25 08/19/18 05:25 08/19/18 05:25 08/19/18 05:25 08/19/18 05:25 General appearance: no acute distress, other (thin appearing) - EENT Eyes: PERRL, EOM intact ENT: hearing intact - Respiratory Respiratory effort: normal - Cardiovascular Rhythm: regular - Gastrointestinal General gastrointestinal: Present: soft, non-tender, non-distended, normal bowel sounds - Neurologic Neurological: alert and oriented x3 - Labs CBC & Chem 7: 08/19/18 05:45 08/18/18 08:21 Labs: Laboratory Results - last 24 hr 08/18/18 08/19/18 14:19 05:45 Hgb 9.2 L 8.9 L Hct 28.1 L 27.5 L <PALLAVI GUO - Last Filed: 08/19/18 23:27> Subjective Interval history: Patient seen and examined. I agree with the advanced practitioner's assessment and plan with the following additions: pt reports stool is firming up, decreasing amounts of blood, and he is improvi ng. May DC with meds as above and followup as outpatient Objective - Constitutional Vitals: Temp Pulse Resp BP Pulse Ox 98.7 F 93 H 16 125/58 99 08/19/18 12:49 08/19/18 12:49 08/19/18 12:49 08/19/18 12:49 08/19/18 12:49 - Labs CBC & Chem 7: 08/19/18 05:45 08/18/18 08:21 Labs: Laboratory Results - last 24 hr 08/19/18 05:45 Hgb 8.9 L Hct 27.5 L
--- NOTE | 2018-08-19 10:54 | Discharge Summary ---
Providers - Providers Date of Admission: 08/16/18 02:18 Date of discharge: 08/19/18 Attending physician: CHRIS SÁNCHEZ 08/16/18 01:29 Consult to Physician [CONS] Stat Comment: Consulting Provider: PALLAVI GUO Physician Instructions: Reason For Exam: gi bleed [facility] Condition: [facility] Hospital course: Patient is a 22-year-old female with bipolar disorder, schizophrenia who presents to the ER with complaints of abdominal pain, nausea and bloody diarrhea x 2 weeks. According to the patientt and his mother, he was admitted 2 weeks ago with the same complaints, he was seen by GI and had a colonoscopy and was diagnosed with ulcerative colitis. Pt states that he was discharge with PO prednisone (6-day pack), flagyl, cipro and protonix, he completed the prednisone but his symptoms didn't resolve therefore came to ED. On evaluation, hemoglobin was 6.0, so was admitted, PRBC ordered. He was seen and evaluated by GI Physician, managed conservatively. Hemoglobin went down as low as 4.4 so was transfused 3 units PRBC bringing hemoglobin to 8.9. Stool was positive for c.diff so discharged home on oral vancomycin. Acute GI bleed hematochezia Hgb 8.9 after 3 units PRBC for hemoglobin 4.4 Anemia due to acute blood loss s/p 3 Units PRBC Acute on chronic anemia Acute component due to acute GI bleed Ulcerative colitis GI Physician following Hypokalemia Replace iv C. diff colitis Continue flagyl Total time spent on discharge, 33 mins Disposition: TO HOME OR SELFCARE - Discharge Diagnoses (1) Exacerbation of ulcerative colitis Status: Acute (2) Anemia due to acute blood loss Status: Acute (3) Lower GI bleed Status: Acute (4) Abdominal pain Status: Acute Qualifiers: Abdominal location: epigastric Qualified Code(s): R10.13 - Epigastric pain (5) GI bleed Status: Acute Qualifiers: GI bleed type/associated pathology: unspecified gastrointestinal hemorrhage type Qualified Code(s): K92.2 - Gastrointestinal hemorrhage, unspecified (6) IBD (inflammatory bowel disease) Status: Acute (7) Malnutrition Status: Acute Qualifiers: Malnutrition type: protein-calorie malnutrition (8) Rectal bleed Status: Acute (9) Schizophrenia Status: Acute Core Measure Documentation - Palliative Care Palliative Care/ Comfort Measures: Not Applicable - Core Measures Any of the following diagnoses?: none Exam - Constitutional Vitals: Temp Pulse Resp BP Pulse Ox 97.8 F 65 20 139/85 100 08/19/18 05:25 08/19/18 05:25 08/19/18 05:25 08/19/18 05:25 08/19/18 05:25 Plan Activity: no restrictions Diet: regular Additional Instructions: 1.Follow up with PCP or [place] nik in 1 week. 2.Follow up with Dr. Guo in 1 week [facility]Primary Care Provider[facility] - 3-5 Days Prescriptions: predniSONE [Deltasone] 20 mg PO QDAY #30 tab Vancomycin 125 mg PO Q6HR 8 Days oralsyr
[2018-08-19] MEDS: K-DUR PO SCH (11:36)
[2018-08-19] MEDS: PROTONIX PO SCH (11:36)
[2018-08-19] MEDS: DELTASONE PO SCH (11:36)
[2018-08-19] MEDS: SODIUM CHLORIDE FLUSH SYRINGE 10 ML IV SCH (11:37)
[2018-08-19 12:54] VITALS: BP 125/58
== END 2018-08-19 21:38 | disposition home or self-care (01) | DRG 386 ==
LOC: ED 20:16 → 3A 08-16 02:18
PROVIDERS: ADMIT Internal Medicine; ATTEND Internal Medicine
PROC: 30233N1 Transfusion of Nonautologous Red Blood Cells into Peripheral Vein, Percutaneous Approach (ICD-10-PCS; principal; 2018-08-17)
DX: K51.911 Ulcerative colitis, unspecified with rectal bleeding (principal); D62 Acute posthemorrhagic anemia; A04.72 Enterocolitis due to Clostridium difficile, not specified as recurrent; F31.9 Bipolar disorder, unspecified; E87.6 Hypokalemia
CPT/HCPCS: 36415; 36430; 80048; 80053; 81001; 82270; 85007; 85014; 85018; 85025; 85027; 86850; 86860; 86870; 86880; 86900; 86901; 86920; 87045; 87116; 87493; 99406; G0378; J1956; J2405; J2930; J3370; J3480; J7030; J7040; J7512; P9016

== ENCOUNTER → 2018-10-22 | Emergency (ER) | payer SELFPAY ==
[~2018-10-22] MED LIST: LACTATED RINGERS 1,000 ML IV ONE; LACTATED RINGERS 1,000 ML ONE; NACL 0.9% 1000 ML 1,000 ML IV ONE; NACL 0.9% 500 ML 500 ML IV ONE; PROTONIX IV ONE
[2018-10-22 02:00] LABS: Basophils # (Auto) 0.1 K/mm3 (0.0-0.1); Eosinophils % (Auto) 0.4 % (0.0-4.3); Monocytes # (Auto) 1.1 K/mm3 (0.0-0.8); Monocytes % (Auto) 7.7 % (0.0-7.3)
[2018-10-22 02:07] LABS: Basophils % (Auto) 0.4 % (0.0-1.8); Lymphocytes # (Auto) 1.1 K/mm3 (1.2-5.4); Lymphocytes % (Auto) 8.4 % (13.4-35.0); Mean Corpuscular HGB Conc 28 % (32-34); Platelet Count 543 K/mm3 (140-440); Red Blood Count 1.96 M/mm3 (3.65-5.03)
[2018-10-22 02:12] LABS: Hematocrit 12.4 % (35.5-45.6); Hemoglobin 3.5 gm/dl (11.8-15.2); Mean Corpuscular Volume 64 fl (84-94)
[2018-10-22 02:13] LABS: Red Cell Distribution Width 21.6 % (13.2-15.2)
[2018-10-22 02:22] LABS: Albumin 3.2 g/dL (3.9-5); BUN/Creatinine Ratio 10; Blood Urea Nitrogen 7 mg/dL (9-20); Calcium 8.7 mg/dL (8.4-10.2); Hemolysis Index 0
[2018-10-22 02:23] LABS: Alanine Aminotransferase < 5 units/L (7-56)
--- NOTE | 2018-10-22 02:42 | Emergency Department Report ---
ED GI Bleed HPI - General Chief complaint: GI Bleed Stated complaint: N/V,WEAKNESS,BLOODY STOOL Time Seen by Provider: 10/22/18 02:27 Source: patient Mode of arrival: Ambulatory Limitations: No Limitations - History of Present Illness Initial comments: 22-year-old -[place] male presents to the emergency department from home with a complaint of 4 weeks history of dark and red stool when he has bowel movements, which got significantly worsens in the past week. He denies significant abdominal pain but does admit to some abdominal cramping. He has a past medical history of Ulcerative colitis, with previous GI bleed requiring transfusion in the past. He had an appointment with his Fitness Teacher yesterday but missed that appointment due to lack of transportation. He is an occasional tobacco smoker. He tried some Tylenol for his symptoms without any relief. No primary care physician. No recent travel or sick contacts at home. MD complaint: melena Onset/Timin -: Gradual, week(s) Location: diffuse Radiation: none Severity scale (0 -10): 10 Quality: cramping Consistency: constant Improves with: none Context: history of GI bleed Associated Symptoms: abdominal pain, nausea Treatments Prior to Arrival: none - Related Data Home Medications Medication Instructions Recorded Confirmed Last Taken OLANzapine [Zyprexa] 10 mg PO DAILY 06/10/18 08/16/18 Unknown Previous Rx's Medication Instructions Recorded Last Taken Type Pantoprazole [Protonix TAB] 40 mg PO QDAY #30 tablet 07/29/18 Unknown Rx diphenhydrAMINE [Benadryl CAP] 50 mg PO QHS PRN #14 capsule 07/29/18 Unknown Rx Vancomycin 125 mg PO Q6HR 8 Days oralsyr 08/18/18 Unknown Rx predniSONE [Deltasone] 20 mg PO QDAY #30 tab 08/18/18 Unknown Rx Allergies Allergy/AdvReac Type Severity Reaction Status Date / Time No Known Allergies Allergy Verified 07/27/18 09:35 ED Review of Systems ROS: Stated complaint: N/V,WEAKNESS,BLOODY STOOL Other details as noted in HPI Comment: All other systems reviewed and negative ENT: denies: ear pain Cardiovascular: denies: chest pain Gastrointestinal: abdominal pain, nausea, melena, hematochezia ED Past Medical Hx - Past Medical History Previous Medical History?: Yes Hx Hypertension: No Hx Heart Attack/AMI: No Hx Congestive Heart Failure: No Hx Diabetes: No Hx Liver Disease: No Hx Renal Disease: No Hx Sickle Cell Disease: No Hx Seizures: No Hx Psychiatric Treatment: Yes (BIPOLAR, SCHIZOPHRENIA) Hx Asthma: No Hx COPD: No Hx Dementia: No Hx HIV: No Additional medical history: HEMMORHOIDS, Colitis - Surgical History Past Surgical History?: No Hx Pacemaker: No Hx Internal Defibrillator: No - Social History Smoking Status: Current Every Day Smoker Substance Use Type: None - Medications Home Medications: Home Medications Medication Instructions Recorded Confirmed Last Taken Type OLANzapine [Zyprexa] 10 mg PO DAILY 06/10/18 08/16/18 Unknown History Pantoprazole [Protonix TAB] 40 mg PO QDAY #30 tablet 07/29/18 08/16/18 Unknown Rx diphenhydrAMINE [Benadryl CAP] 50 mg PO QHS PRN #14 capsule 07/29/18 08/16/18 Unknown Rx Vancomycin 125 mg PO Q6HR 8 Days oralsyr 08/18/18 Unknown Rx predniSONE [Deltasone] 20 mg PO QDAY #30 tab 08/18/18 Unknown Rx ED Physical Exam - General Limitations: No Limitations General appearance: alert, in no apparent distress - Head Head exam: Present: atraumatic, normocephalic - Eye Eye exam: Present: normal appearance, PERRL, EOMI Pupils: Present: normal accommodation - ENT ENT exam: Present: normal exam, normal orophraynx - Neck Neck exam: Present: normal inspection - Respiratory Respiratory exam: Present: normal lung sounds bilaterally - Cardiovascular Cardiovascular Exam: Present: regular rate, normal rhythm - GI/Abdominal GI/Abdominal exam: Present: soft, normal bowel sounds - Neurological Exam Neurological exam: Present: alert, oriented X3, CN II-XII intact - Psychiatric Psychiatric exam: Present: normal affect - Skin Skin exam: Present: warm ED Course Vital Signs 10/22/18 01:42 Temperature 98.8 F Pulse Rate 143 H Respiratory 20 Rate Blood Pressure 91/44 [Left] O2 Sat by Pulse 100 Oximetry ED Medical Decision Making - Lab Data Result diagrams: 10/22/18 02:52 10/22/18 01:50 - Medical Decision Making 22-year-old -[place] male presents to the emergency department from home with a complaint of 4 weeks history of dark and red stool when he has bowel movements, which got significantly worsens in the past week. He denies significant abdominal pain but does admit to some abdominal cramping. He has a past medical history of Ulcerative colitis, with previous GI bleed requiring transfusion in the past. He had an appointment with his Fitness Teacher yesterday but missed that appointment due to lack of transportation. He is an occasional tobacco smoker. He tried some Tylenol for his symptoms without any relief. No primary care physician. No recent travel or sick contacts at home. GI bleed: h/h low, transfuse prbcs x 4 units, GI consulted, Dr. Puri aware. Will follow in am. UC: gi consulted, Critical care attestation.: If time is entered above; I have spent that time in minutes in the direct care of this critically ill patient, excluding procedure time. ED Disposition Clinical Impression: Anemia due to acute blood loss, IBD (inflammatory bowel disease) GI bleed Qualifiers: GI bleed type/associated pathology: unspecified gastrointestinal hemorrhage type Qualified Code(s): K92.2 - Gastrointestinal hemorrhage, unspecified Disposition: DC-09 OP ADMIT IP TO THIS HOSP Is pt being admited?: Yes Does the pt Need Aspirin: No Condition: Stable Referrals: FAZAL ALVES MD [Primary Care Provider] - 3-5 Days Forms: Accompanied Note
[2018-10-22 03:25] LABS: Hemoglobin 3.1 gm/dl (11.8-15.2)
[2018-10-22 03:26] LABS: Hematocrit 10.7 % (35.5-45.6)
--- NOTE | 2018-10-22 04:12 | Event Note ---
DR Cleaning consulting me to see the patient for admission. This patient has a history of ulcerative colitis comes in with rectal bleed and has severe anemia, hemoglobin of 3.1. He has a rare antibody and the blood bank has no idea when they will receive blood from [facility] [place]. Patient is critical, he will need to be transferred to a larger facility for care. I have discussed the case with Dr. Puri, GI and the mother and patient
[2018-10-22 06:09] VITALS: BP 135/66
== END | disposition admitted as inpatient to this hospital (09) ==
LOC: ED 01:29
DX: K52.3 Indeterminate colitis (principal); K92.2 Gastrointestinal hemorrhage, unspecified; D62 Acute posthemorrhagic anemia; F31.9 Bipolar disorder, unspecified; F20.9 Schizophrenia, unspecified; F17.200 Nicotine dependence, unspecified, uncomplicated; Z79.899 Other long term (current) drug therapy
CPT/HCPCS: 36415; 80053; 83690; 85014; 85018; 85025; 86850; 86900; 86901; 96361; 96374; 99285; C9113; J7030; J7120; 86920